=== PATIENT | male | born 1960 | race African-American/Black ===

== ENCOUNTER 2016-12-02 05:33 | Day surgery (SDC) | payer BC ==
[2016-11-25 09:18] LABS: HEMATOCRIT 40.3 % (37.9-51.0); HGB HCT DIFFERENCE -1.3; MEAN CORPUSCULAR HEMOGLOBIN 22.5 pg (27.0-33.4); MEAN CORPUSCULAR HGB CONC 32.3 g/dL (32.0-36.0); MEAN CORPUSCULAR VOLUME 70 fl (80-97); RED BLOOD COUNT 5.79 10^6/uL (4.35-5.55); RED CELL DISTRIBUTION WIDTH 15.1 % (11.5-14.0)
--- NOTE | 2016-11-25 20:33 | EKG REPORT ---
SEVERITY:- ABNORMAL ECG - SINUS RHYTHM PROBABLE LEFT ATRIAL ABNORMALITY IVCD, CONSIDER ATYPICAL LBBB : Confirmed by: Roger Martin MD 25-Nov-2016 20:31:56
[~2016-12-02 05:33] MED LIST: ACETAMINOPHEN 325 MG TABLET PO PRN; CEFAZOLIN 1 GM/D5W RTU 1 GM/50 ML RTUPB IV SCH; LACTATED RINGERS 1000 ML IV PRN; LIDOCAINE 0.5% INJ-PF (5 MG/ML) 50 ML SDV SUBCUT PRN
[2016-12-02] MEDS ORDERED: BUPIVACAINE INJ/PF LIPOSOME/PF 266 MG/20 ML SDV ONE (06:43)
[2016-12-02] MEDS ORDERED: BUPIVACAINE HCL 0.25 % INJ/PF (2.5 MG/1 ML) 30 ML VIAL ONE (06:43)
[2016-12-02 06:47] VITALS: BP 175/114
[2016-12-02] MEDS ORDERED: HYDROMORPHONE HCL INJ/PF 2 MG/ML AMPULE ONE (07:07)
[2016-12-02] MEDS ORDERED: MIDAZOLAM 2 MG/2 ML INJ ONE ×2 (07:08→07:16)
[2016-12-02] MEDS ORDERED: PROPOFOL INJ 200 MG/20 ML VIAL IV ONE (07:08)
[2016-12-02] MEDS ORDERED: ACETAMINOPHEN 0 ML IV ONE (07:08)
== END 2016-12-02 08:09 | disposition home or self-care (01) ==
LOC: OROUT 05:33
PROVIDERS: ATTEND Surgery
DX: Z01.818 Encounter for other preprocedural examination (principal); K40.90 Unilateral inguinal hernia, without obstruction or gangrene, not specified as recurrent; I10 Essential (primary) hypertension
CPT/HCPCS: 93005; 36415; 85027; 93010; J2250; J0690; C9290; J0131; J1170; J2704

== ENCOUNTER → 2017-01-20 | Day surgery (SDC) | payer BC ==
[2017-01-13 09:13] LABS: HEMATOCRIT 39.3 % (37.9-51.0); HEMOGLOBIN 12.5 g/dL (13.5-17.0); HGB HCT DIFFERENCE -1.8; MEAN CORPUSCULAR HEMOGLOBIN 22.4 pg (27.0-33.4); MEAN CORPUSCULAR HGB CONC 31.8 g/dL (32.0-36.0); MEAN CORPUSCULAR VOLUME 71 fl (80-97); RED BLOOD COUNT 5.57 10^6/uL (4.35-5.55); RED CELL DISTRIBUTION WIDTH 15.7 % (11.5-14.0); WHITE BLOOD COUNT 3.7 10^3/uL (4.0-10.5)
[~2017-01-20] MED LIST changes: +CEFAZOLIN 1 GM/D5W RTU 1 GM/50 ML RTUPB IV PRN; -CEFAZOLIN 1 GM/D5W RTU 1 GM/50 ML RTUPB IV SCH
[2017-01-20 10:17] VITALS: BP 168/93
--- NOTE | 2017-01-20 21:16 | EKG REPORT ---
SEVERITY:- ABNORMAL ECG - SINUS BRADYCARDIA LEFT ATRIAL ABNORMALITY LEFT BUNDLE BRANCH BLOCK : Confirmed by: Quinn Gonzáles 20-Jan-2017 21:15:18
== END ==
LOC: OROUT 09:25
PROVIDERS: ATTEND Surgery
DX: Z01.818 Encounter for other preprocedural examination (principal); K40.90 Unilateral inguinal hernia, without obstruction or gangrene, not specified as recurrent; I10 Essential (primary) hypertension
CPT/HCPCS: 36415; 85027; 93005; 93010; J0690

== ENCOUNTER → 2017-01-21 | Outpatient (CLI) | payer BC ==
[~2017-01-21] MED LIST changes: -ACETAMINOPHEN 325 MG TABLET PO PRN; -CEFAZOLIN 1 GM/D5W RTU 1 GM/50 ML RTUPB IV PRN; -LACTATED RINGERS 1000 ML IV PRN; -LIDOCAINE 0.5% INJ-PF (5 MG/ML) 50 ML SDV SUBCUT PRN; +REGADENOSON INJ 0.4 MG/5 ML DISP.SYRIN IV ONE
--- NOTE | 2017-01-23 15:58 | DRAGON STRESS TEST REPORT ---
Intravenous LexiScan Cardiolite stress test using single photon emmision computerized tomographic. Date of procedure: 01/21/2017 Ordering Provider: Dr. Joanna Dutta. Primary Care Physician: Dr. Tiffanie Sosa. Indication: . Abnormal EKG [see below], and preoperative cardiac risk assessment. Coronary risk factors: Age, and hypertension. Resting EKG: Sinus Rhythm. LVH with strain pattern, and T inversion in lead V6. Note the patient's prior EKG showed sinus rhythm , LVH with strain pattern but cannot rule out out lateral wall ischemia. Stress EKG: No changes of ischemia. The patient had no chest pain or discomfort, and there were no arrhythmias seen. Reason for termination: Protocol. Conclusions: Normal EKG and hemodynamic response to IV LexiScan. Nuclear data: At rest the patient was given 14.22 millicuries of technetium 99 sestamibi injected intravenously. As per protocol rest non gated SPECT images were obtained. Subsequently the patient was given intravenous LexiScan at a dose of 0.4 mg in 5 mL intravenously, followed by flush with normal saline. Subsequently the stress dose of 45.4 millicuries of technetium 99 sestamibi was injected intravenously. As per protocol stress gated images were obtained. Nuclear interpretation: Review of images showed that there is a perfusion defect in both the rest and stress images involving the basal inferior wall, with this area having decreased motion contraction and thickening by gated study. The rest of the segments of the myocardium had normal perfusion at rest, and normal perfusion post stress with IV LexiScan. The rest of the segments of the myocardium had normal thickening by gated study. This seems to be mild global hypokinesis. T. I D. ratio was normal at 1.19. Computer read rest, and stress left ventricular ejection fraction were 49 %, and 37 % respectively. Visually both the stress and rest ejection fractions were abnormal, and r were reduced at 45% to 50%. 1. There is no scintigraphic evidence of LexiScan induced myocardial ischemia. 2. There is scintigraphic evidence of myocardial infarction/scar involving the basal inferior wall. 3. There seems to be mild cardiomyopathy, with ejection fraction being 45% to 50%. . Recommendations: 1.Would recommend an echocardiogram for LV ejection fraction correlation, prior to further risk assessment for this proposed surgery. 2.Aggressive risk factor modification, and treating the underlying co- morbidities. MTDD
== END ==
LOC: RAD 06:58
PROVIDERS: ATTEND Specialist
DX: R94.31 Abnormal electrocardiogram [ECG] [EKG] (principal)
CPT/HCPCS: 93017; 78452; A9500; J2785; Q9969

== ENCOUNTER → 2017-02-10 | Outpatient (CLI) | payer BC ==
[2017-02-11 15:38] LABS: AMORPHOUS SEDIMENT,URINE TRACE /HPF; APPEARANCE,URINE TURBID; BILIRUBIN,URINE NEGATIVE (NEGATIVE); GLUCOSE, URINE NEGATIVE (NEGATIVE); KETONES,URINE NEGATIVE (NEGATIVE); LEUKOCYTE ESTERASE,URINE NEGATIVE (NEGATIVE); NITRITE,URINE NEGATIVE (NEGATIVE); PROTEIN,URINE NEGATIVE (NEGATIVE); URINE SPECIFIC GRAVITY 1.025; UROBILINOGEN,URINE NEGATIVE mg/dL (<2.0)
== END ==
LOC: OD 22:17
PROVIDERS: ATTEND Urology
DX: R97.20 Elevated prostate specific antigen [PSA] (principal); R31.9 Hematuria, unspecified
CPT/HCPCS: 36415; 81001; 84154

== ENCOUNTER 2017-02-24 05:39 | Observation (INO) | payer BC ==
[2017-02-17 12:18] LABS: HEMATOCRIT 41.5 % (37.9-51.0); HEMOGLOBIN 13.2 g/dL (13.5-17.0); HGB HCT DIFFERENCE -1.9; MEAN CORPUSCULAR HEMOGLOBIN 22.2 pg (27.0-33.4); MEAN CORPUSCULAR HGB CONC 31.9 g/dL (32.0-36.0); MEAN CORPUSCULAR VOLUME 70 fl (80-97); RED BLOOD COUNT 5.97 10^6/uL (4.35-5.55); RED CELL DISTRIBUTION WIDTH 15.1 % (11.5-14.0); WHITE BLOOD COUNT 3.8 10^3/uL (4.0-10.5)
--- NOTE | 2017-02-17 13:33 | EKG REPORT ---
SEVERITY:- ABNORMAL ECG - SINUS BRADYCARDIA LEFT BUNDLE BRANCH BLOCK : Confirmed by: Roger Martin MD 17-Feb-2017 13:33:08
[~2017-02-24 05:39] MED LIST changes: +ACETAMINOPHEN 325 MG TABLET PO PRN; +CEFAZOLIN 1 GM/D5W RTU 1 GM/50 ML RTUPB IV PRN; +LACTATED RINGERS 1000 ML IV PRN; +LIDOCAINE 0.5% INJ-PF (5 MG/ML) 50 ML SDV SUBCUT PRN; -REGADENOSON INJ 0.4 MG/5 ML DISP.SYRIN IV ONE
[2017-02-24] MEDS ORDERED: BUPIVACAINE HCL 0.25 % INJ/PF (2.5 MG/1 ML) 30 ML VIAL ONE (06:37)
[2017-02-24] MEDS ORDERED: BUPIVACAINE INJ/PF LIPOSOME/PF 266 MG/20 ML SDV ONE (06:38)
[2017-02-24] MEDS ORDERED: HYDROMORPHONE HCL INJ/PF 2 MG/ML AMPULE ONE (07:07)
[2017-02-24] MEDS ORDERED: PROPOFOL INJ 200 MG/20 ML VIAL IV ONE (07:08)
[2017-02-24] MEDS ORDERED: ACETAMINOPHEN 100 ML IV ONE (07:08)
[2017-02-24] MEDS ORDERED: FENTANYL CITRATE INJ/PF 100 MCG/2 ML AMPUL ONE (07:08)
[2017-02-24] MEDS ORDERED: MIDAZOLAM 2 MG/2 ML INJ ONE (07:08)
[2017-02-24] MEDS ORDERED: DIPHENHYDRAMINE HCL 50 MG/ML VIAL IV PRN (08:05)
[2017-02-24] MEDS ORDERED: MEPERIDINE HCL/PF INJ 25 MG/1 ML DISP.SYRIN IV PRN (08:05)
[2017-02-24] MEDS ORDERED: MORPHINE SULFATE 10 MG/ML INJ IV PRN (08:05)
[2017-02-24] MEDS ORDERED: OXYCODONE-ACETAMINOPHEN 5-325 MG TABLET PO PRN ×2 (08:05)
[2017-02-24] MEDS ORDERED: FENTANYL CITRATE INJ/PF 100 MCG/2 ML AMPUL IV PRN ×3 (08:05)
[2017-02-24] MEDS ORDERED: PROMETHAZINE HCL INJ 25 MG/1 ML VIAL IV PRN ×2 (08:05)
--- NOTE | 2017-02-24 09:32 | PDOC DISCHARGE SUMMARY ---
Discharge Summary (SDC) - Discharge Final Diagnosis: right inguinal hernia Date of Surgery: 02/24/17 Discharge Date: 02/24/17 Condition: Stable Treatment or Instructions: Inguinal Hernia No heavy lifting >20lbs for 8 weeks. No excessive bending, pulling, pushing. You have skin glue as a dressing. Leave skin glue intact until it falls away on its own. You may shower after 48 hours. Allow soapy water to go over area, do not scrub, pat dry. Return to clinic in ten days to two weeks for evaluation. Call clinic sooner with any questions/concerns. [facility] [phone] Prescriptions: Ketorolac Tromethamine [Toradol 10 mg Tablet] 10 mg PO Q4HP PRN #20 tablet PRN Reason: Discharge Diet: As Tolerated Discharge Activity: No Lifting Over 10 Pounds - over 20lbs for 8 weeks, No Lifting/Push/Pulling Report the Following to Your Physician Immediately: Vomiting, Increase in Pain, Fever over 101 Degrees, Unusual Bleeding, Redness, Drainage-Foul Smelling
[2017-02-24] MEDS: FENTANYL CITRATE INJ/PF 100 MCG/2 ML AMPUL ONE ×2 (09:35→12:14)
--- NOTE | 2017-02-24 09:37 | Operative Report ---
Operative Report DATE OF SURGERY: 02/24/17 PREOPERATIVE DIAGNOSIS: Right inguinal hernia, prolapse POSTOPERATIVE DIAGNOSIS: Same, indirect OPERATION: Right inguinal herniorrhaphy with Bard polypropylene mesh plug and overlay mesh repair SURGEON: KIKI ADKINS 1ST TANNER ROTARY DRUM CONTINUOUS PROCESS: OMER MARIA ANESTHESIA: GA TISSUE REMOVED OR ALTERED: Hernia sac and attenuated cremasteric muscle fibers COMPLICATIONS: None ESTIMATED BLOOD LOSS: 15 cc INTRAOPERATIVE FINDINGS: See below PROCEDURE: The patient was evaluated in the preop holding area with the right inguinal region was marked by Dr. Adkins. Patient was then taken to the operating room where he underwent general anesthesia via endotracheal tube insertion. Arms were abducted, scrotum and lower abdominal wall prepped and draped in a sterile fashion. Surgical plan and surgical timeout conducted. Relevant anatomic landmarks were identified. Skin and subcutaneous tissue was anesthetized with approximately 15 cc of quarter percent Marcaine. A standard right inguinal herniorrhaphy incision was made with a #10 blade. Subcutaneous tissue was divided as was Ekta's fascia with electrocautery. The external oblique aponeurosis was anesthetized with quarter percent Marcaine then opened with a #10 blade. Superior and inferior fascial flaps were raised. The findings are significant for a moderate sized right inguinal hernia. The contents of the inguinal canal were gently mobilized. A Melissa drain was placed around all soft tissue therein. We now began dissecting the hernia sac away from the cord structures. The hernia sac was extremely firmly adhered to the vas deferens and the penniform plexus. This was a rather tedious but successful dissection as we able to sweep all of the soft tissue contents away from the peritoneal sac as a unit. The hernia sac was mobilized all the way up to its point of origination which was lateral to the inferior epigastric vessels , thereby rendering this an indirect hernia. We opened the hernia sac check for any visceral contents and there were none. the hernia sac was rotated on its base and oversewed at its stump with a 0 Vicryl suture. The hernia sac was amputated and passed off to pathology. Of note there was a fibrinous flimsy capsule surrounding the hernia sac and cord structures. Debrided, being careful not to injure the cord structures or the ilioinguinal nerve which was preserved throughout the dissection. We interrogated the floor the inguinal canal and medially it was felt to be in good shape. With the peritoneal stump now retracted into the retroperitoneal space, the actual abdominal wall defect is small. We used a Bard plug mesh prosthesis. The outer component was trimmed slightly, and the plug mesh inserted into the floor the inguinal canal adjacent to the cord structures but lateral to the stump of the oversewn peritoneum. We affixed the plug component to conjoined tendon and Poupart's ligament with 4 interrupted 0 PDS sutures. We now utilized the flat mesh, trimmed it to an appropriate configuration and showed it to the Poupart ligament and conjoined tendon as well. The new internal ring was re-created so that it was not too tight around the cord structures. We now closed the external oblique aponeurosis with 2-0 Vicryl suture, Ekta's fascia with 2-0 Vicryl, and skin with 3-0 Vicryl, and Dermabond glue. Subcutaneous tissue was anesthetized with 20 cc of full-strength exparel. Patient tolerated procedure well, extubated and taken recovery in stable condition. NKECHI Estrada, assisted with skin retraction wound closure and topical anesthesia administration.
[2017-02-24] MEDS: MORPHINE SULFATE 10 MG/ML INJ ONE ×2 (10:38→10:40)
[2017-02-24] MEDS: VALSARTAN 80 MG TABLET PO ONE ×2 (10:58→16:29)
[2017-02-24] MEDS ORDERED: SUCCINYLCHOLINE CHLORIDE INJ 200 MG/10 ML VIAL ONE (11:33)
[2017-02-24] MEDS ORDERED: CLONIDINE HCL INJ/PF 1000 MCG/10 ML SDV ONE (13:05)
[2017-02-24] MEDS: CLONIDINE HCL 0.1 MG TABLET PO ONE ×2 (13:20→16:29)
[2017-02-24] MEDS ORDERED: HYDRALAZINE HCL INJ/PF 20 MG/1 ML SDV IV PRN ×2 (15:00→15:01)
[2017-02-24] MEDS ORDERED: HYDRALAZINE HCL INJ/PF 20 MG/1 ML SDV IV ONE (15:00)
[2017-02-24] MEDS ORDERED: HYDRALAZINE HCL INJ/PF 20 MG/1 ML SDV ONE (15:17)
--- NOTE | 2017-02-24 16:13 | HISTORY AND PHYSICAL E ---
History and Physical NAME: ROSALIO CORDERO : 1960 AGE: 56Y ADMITTED: 02/24/2017 ROOM: REFERRING PROVIDER: Dr. Travis Marroquin CHIEF COMPLAINT: Uncontrolled hypertension. HISTORY OF PRESENT ILLNESS: The patient is a 56-year-old -[place] male with a past medical history of significant hypertension. The [facility] today for inguinal hernia repair. According to history, it appears the patient has had 3 separate attempts to have this surgery done; however, it has been rescheduled each time due to the patient's hypertension. The patient's hypertension has been managed by his primary care provider, Dr. Tiffanie Sosa, and the patient was initially started on ARB as well as metoprolol; however, as per the patient's history, metoprolol caused bradycardia for which the patient was referred to Cardiology. The patient had been seen and evaluated by Dr. Dutta in an outpatient setting and medication recommendations were made. Upon followup with his primary, the patient was transitioned to clonidine, for which the patient apparently had been taking in the past week; however, the morning of 02/24/2017 for his surgery the patient had not taken any of the blood pressure medications. Postoperatively the patient's blood pressure was found to be 226/117 and the patient was clinically asymptomatic for this. I was called to consult by Anesthesia. The patient was resumed on his home medications; however, his blood pressure had only made a minimal improvement within the hour, and at the request of Surgery the patient will be admitted for observation given his hypertensive urgency. Upon examination the patient denies any nausea, vomiting, diarrhea. No shortness of breath, dizziness, chest pain. No fevers or chills. The patient is actually quite eager for discharge; however, is willing to stay to get his blood pressure better controlled. PAST MEDICAL HISTORY: Is remarkable for hypertension. PAST SURGICAL HISTORY: Is remarkable for: 1. 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 2. Postoperative of hernia repair. ALLERGIES: No known drug allergies. MEDICATIONS: Home medications include: 1. Clonidine 0.2 mg p.o. b.i.d. 2. Diovan 160 mg p.o. b.i.d. SOCIAL HISTORY: The patient currently resides at home. 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 The patient's mother is his surrogate decision maker, Brenda Cordero, and may be reached at [phone]. The patient admits to a history of tobacco use but denies any alcohol or illicit drug use. FAMILY MEDICAL HISTORY: Positive for hypertension in multiple family members. Denies any history of heart failure or stroke. REVIEW OF SYSTEMS: CONSTITUTIONAL: The patient denies any fevers, chills, dizziness, weakness. No loss of appetite. INTEGUMENTARY: The patient denies any diaphoresis, rash, bruising or itching. HEENT: Denies any vision change, hearing loss, nasal drainage, sore throat, headaches. CARDIOVASCULAR: The patient denies any chest pain, edema, heart palpitations. RESPIRATORY: Denies any cough, sputum production or hemoptysis. GASTROINTESTINAL: Denies any nausea, vomiting, bloody hematemesis, constipation, melena, hematochezia. No epigastric pain. GENITOURINARY: Denies any hematuria, pyuria or dysuria. MUSCULOSKELETAL: Denies any acute or chronic joint pain. NEUROLOGIC: Denies any seizures, tremors, loss of consciousness. HEMATOLOGICAL: Denies any miesha bleeding. No easy bruising. ENDOCRINE: Denies any recent weight changes. PSYCHIATRIC: Appropriate affect. Pleasant mood. Rest of review of the organ systems is negative. PHYSICAL EXAMINATION: GENERAL: On examination, the patient is a well-developed, well-nourished 56-year-old -[place] male who is awake, alert, and oriented to person, place, time, and situation. He is verbal, conversational, ambulatory. He does not appear to be in any acute distress. VITAL SIGNS: Temperature is 98.4, pulse 82, respirations 14, blood pressure is 200/104, and oxygen saturation is 100% on room air. SKIN: Warm and dry. There is no rash and he is not diaphoretic. HEENT: Pupils equal, round and reactive to light and accommodation. Conjunctiva is pink. Sclerae is nonicteric. No mouth lesions. Tongue is midline. NECK: Supple. No JVP. No palpable lymphadenopathy or thyromegaly. CARDIOVASCULAR: Heart is regular, is no murmur or rub. CHEST: Clear, symmetrical, unlabored. ABDOMEN: Soft, nontender, nondistended. It is postoperative. Bowel sounds are present. No palpable organomegaly. BACK: No CVA tenderness or sacral edema. EXTREMITIES: No clubbing, cyanosis, edema or peripheral signs of embolization, +2 pedal pulses noted bilaterally. PSYCHIATRIC: Appropriate affect. Pleasant mood. NEUROLOGICAL: Cranial nerves 2-12 are intact. DIAGNOSTICS: Lab values are as follows. Hematology obtained on 02/17/2017: WBCs are 3.8, hemoglobin is 13.2, hematocrit 41.5, platelet count is 222,000. IMPRESSION AND PLAN: 1. Hypertensive urgency. The patient has had a long history of hypertension. These numbers are not too unusual for him. The patient has been compliant, according to him, with clonidine and stopped taking his medication prior to the procedure. Do have a high suspicion for rebound given the height of the numbers and the fact that the patient is familiar with having blood pressures this high. Will resume home medications but give an additional dose of hydralazine and add hydralazine p.r.n. Will admit the patient for further observation. 2. Postoperative hernia repair. The patient can be discharged as per Surgery. 3. DVT prophylaxis. Will add KIARA hose and subcutaneous heparin. DISPOSITION: THE PATIENT IS A FULL CODE. Pending the patient's symptomatology and diagnostic findings, most likely the patient can be discharged in the a.m. Will observe the patient in inpatient IMCU as the patient's expected length of stay will not surpass 2 midnights. Time spent on this admission, including assessment/plan, physical examination, patient education, specialty collaboration, resource alignment, is 50 minutes. DICTATING PHYSICIAN: AMBER SNEED NP [id number] PHY#: [id number] ID: [id number] JOB#: [id number] ACCT: [id number] cc:TRAVIS MARROQUIN M.D. >
[2017-02-24] MEDS ORDERED: PROMETHAZINE HCL INJ 25 MG/1 ML VIAL IM ONE (16:32)
[2017-02-24] MEDS ORDERED: PROMETHAZINE HCL INJ 25 MG/1 ML VIAL IV ONE (16:32)
[2017-02-24] MEDS ORDERED: ONDANSETRON 4 MG TAB.RAPDIS PO PRN (16:50)
[2017-02-24] MEDS: VALSARTAN 160 MG TABLET PO SCH (17:00)
[2017-02-24] MEDS ORDERED: AMLODIPINE BESYLATE 5 MG TABLET PO ONE (17:00)
[2017-02-24] MEDS ORDERED: PROMETHAZINE HCL INJ 50 MG/1 ML VIAL IM ONE (17:00)
[2017-02-24] MEDS ORDERED: NITROGLYCERIN 2% OINTMENT 1 GM PACKET TP ONE (17:00)
[2017-02-24 19:05] LABS: ANION GAP 16 (5-19); BLOOD UREA NITROGEN 11 mg/dL (7-20); CALCIUM 10.1 mg/dL (8.4-10.2); CARBON DIOXIDE 27 mmol/L (22-30); CHLORIDE 97 mmol/L (98-107); GLUCOSE 163 mg/dL (75-110); POTASSIUM 3.5 mmol/L (3.6-5.0); SODIUM 139.7 mmol/L (137-145)
[2017-02-24 21:34] LABS: URINE BARBITURATES SCREEN NEGATIVE; URINE METHADONE SCREEN NEGATIVE; URINE PHENCYCLIDINE SCREEN NEGATIVE
[2017-02-24 21:56] LABS: URINE OPIATES LOW UNCONFIRMED POSITIVE
[2017-02-24] MEDS ORDERED: PROMETHAZINE HCL 25 MG SUPP.RECT PR PRN (22:18)
[2017-02-24] MEDS: CLONIDINE HCL 0.2 MG TABLET PO SCH (22:51)
[2017-02-24] MEDS: AMLODIPINE BESYLATE 5 MG TABLET PO SCH (22:52)
[2017-02-24] MEDS: HEPARIN SOD (PORCINE) 5,000 UNIT/ML 1 ML SYRINGE SUBCUT SCH (22:52)
[2017-02-24 22:53] LABS: ANION GAP 19 (5-19); BLOOD UREA NITROGEN 13 mg/dL (7-20); CARBON DIOXIDE 24 mmol/L (22-30); CHLORIDE 98 mmol/L (98-107); CREATININE RESULT 0.92 mg/dL (0.52-1.25); GLUCOSE 166 mg/dL (75-110); MAGNESIUM 1.7 mg/dL (1.6-2.3); POTASSIUM 3.5 mmol/L (3.6-5.0); SODIUM 140.6 mmol/L (137-145)
[2017-02-25] MEDS: HEPARIN SOD (PORCINE) 5,000 UNIT/ML 1 ML SYRINGE SUBCUT SCH ×2 (05:25→13:37)
--- NOTE | 2017-02-25 09:57 | EKG REPORT ---
SEVERITY:- ABNORMAL ECG - SINUS TACHYCARDIA LEFT ATRIAL ABNORMALITY LVH WITH IVCD, LAD AND SECONDARY REPOL ABNRM : Confirmed by: Quinn Gonzáles 25-Feb-2017 09:55:25
[2017-02-25] MEDS: CLONIDINE HCL 0.2 MG TABLET PO SCH (10:22)
[2017-02-25] MEDS: VALSARTAN 160 MG TABLET PO SCH (10:22)
[2017-02-25] MEDS: AMLODIPINE BESYLATE 5 MG TABLET PO SCH (10:22)
[2017-02-25] MEDS ORDERED: HYDRALAZINE HCL INJ/PF 20 MG/1 ML SDV IV PRN (11:09)
[2017-02-25] MEDS ORDERED: CLONIDINE HCL 0.1 MG TABLET PO ONE (11:10)
[2017-02-25 13:33] VITALS: BP 150/100
[2017-02-25] MEDS ORDERED: CLONIDINE HCL 0.2 MG TABLET PO SCH (14:00)
--- NOTE | 2017-02-25 18:23 | DISCHARGE SUMMARY E ---
Discharge Summary NAME: ROSALIO CORDERO : 1960 AGE: 56Y ADMITTED: 02/24/2017 DISCHARGED: 02/25/2017 CODE STATUS: FULL CODE. PRIMARY CARE PROVIDER: Tiffanie Sosa M.D. SURGICALIST: Travis Marroquin M.D. OUTPATIENT EQUIPMENT VALIDATION SPECIALIST: Joanna Dutta M.D. DISCHARGE DIAGNOSES: Includes: 1. Hypertensive emergency. 2. Medical noncompliance. DISCHARGE MEDICATIONS: Include: 1. Norvasc 5 mg p.o. q.12 hours, #90 tablets 0 refills. 2. Clonidine 0.3 mg p.o. q.8 hours, #60 tablets 0 refills. 3. Diovan 160 mg p.o. b.i.d. DIET: Heart healthy. ACTIVITY: As per surgicalist's instructions of no heavy lifting of greater than 20 pounds for 8 weeks. No bending, pulling, pushing. HISTORY OF PRESENT ILLNESS: The patient is a 56-year-old male with a past medical history of severe hypertension. The patient presented to the surgery center and underwent right inguinal hernia repair. While in the PACU, the patient's blood pressure was uncontrollable. According to history, the patient has had 3 separate attempts to have the surgery done, however, had been rescheduled each time due to the patient's hypertension. The patient's primary care provider, Dr. Tiffanie Sosa, initially started the patient on ARB as well as metoprolol; however, according to the patient's history, metoprolol had caused bradycardia, and therefore patient was referred to Cardiology. The patient was seen and evaluated in an outpatient setting. Stress test was completed as well as. Medication recommendations were made. Upon followup with his primary care provider, the patient was transitioned to clonidine for which he had apparently been taking the week prior to his surgery; however, the morning of 02/24/2017 before surgery, the patient did not take his blood pressure medication. Postoperatively, the patient's blood pressure was found to be 226/117; however, the patient was otherwise clinically asymptomatic. The patient was referred to the hospitalist for observation and management for hypertensive emergency by Anesthesia as well as the surgicalist. The patient was resumed on his home medications; however, his blood pressure only made minimal improvement within an hour. The patient denied any nausea, vomiting, diarrhea. No shortness of breath due to his chest pain. No fevers, chills. The patient was actually quite eager for discharge; however, he was willing to stay to get his blood pressure better controlled. I discussed the case with the patient's surgicalist, and the patient has been cleared for discharge. HOSPITAL COURSE: The patient was observed in continuous telemetry unit. The patient was maximized on his home clonidine therapy and was resumed on his ARB. The patient did have improvement with this, and additional Norvasc was added. The patient's blood pressures came down nicely throughout the evening. The patient did have a postoperative episode of nausea with vomiting, but this responded to anti-emetic therapy. At this time, the patient states that he feels that he at his baseline. He is sore from his surgery, and he is quite eager for discharge. DIAGNOSTICS: Lab values are as follows: Hematology obtained 02/17/2017: WBC is 3.8; hemoglobin is 13.2; hematocrit is 41.5; platelet count is 222,000. Chemistry obtained on 02/24/2017: Sodium is 140; potassium is 4.5; chloride is 98; carbon dioxide is 24; BUN 13; creatinine is 0.92; glucose 166; calcium is 10; magnesium is 1.7. Toxicology obtained on 02/24/2017 is positive for opiates and benzodiazepine as well as marijuana. EKG obtained on 02/24/2017 reveals sinus tachycardia. PHYSICAL EXAMINATION: GENERAL: On examination, the patient is a well-developed, well-nourished, 56-year-old male who is awake, alert, and oriented to person, place, time, and situation. He is verbal conversational, ambulatory, and does not appear to be in any acute distress. VITAL SIGNS: Are as follows: Temperature is 97.6. Pulse 88. Respirations 19. Blood pressure is 150/94. Oxygen saturation 98% on room air. SKIN: Warm and dry. No rash. Not diaphoretic. HEENT: Pupils are equal, round, and reactive to light and accommodation. Conjunctivae pink. There is no JVD. CARDIOVASCULAR: Heart is regular. There is no murmur or rub. CHEST: Clear to auscultation. ABDOMEN: Soft, nontender, nondistended. Postoperative. BACK: No CVA tenderness or sacral edema. EXTREMITIES: No clubbing, cyanosis, edema. PSYCHIATRIC: Appropriate affect, pleasant mood. DISCHARGE PLANNIN. The patient is advised to follow up with his primary care provider within 1 week for hospital followup and for blood pressure check. 2. The patient is to follow up within 1 to 2 weeks with the surgicalist for hospital followup. Time spent on this discharge including assessment, plan, physical examination, patient education, and collaboration is 25 minutes. DICTATING PHYSICIAN: AMBER SNEED NP [id number] Y#: [id number] ID: [id number] JOB#: [id number] ACCT: [id number] cc:GELY JUÁREZ M.D. >
== END 2017-02-25 16:20 | disposition home or self-care (01) ==
LOC: OROUT 05:39 → 3N 14:57 → UNDOADMOB 17:30
PROVIDERS: ADMIT Surgery; ATTEND Surgery
PROC: 0YU50JZ Supplement Right Inguinal Region with Synthetic Substitute, Open Approach (ICD-10-PCS; principal; 2017-02-24 07:30)
DX: I16.1 Hypertensive emergency (principal); Z91.14 Patient's other noncompliance with medication regimen; K40.90 Unilateral inguinal hernia, without obstruction or gangrene, not specified as recurrent; K91.0 Vomiting following gastrointestinal surgery; R78.89 Finding of other specified substances, not normally found in blood; R00.0 Tachycardia, unspecified; Z82.49 Family history of ischemic heart disease and other diseases of the circulatory system; Z87.891 Personal history of nicotine dependence
CPT/HCPCS: 93005 ×2; 36415 ×2; 82962; 83735; 85027; 80048; 80307; 88302 ×2; 93010 ×2; 49505; G0378 ×2; G0379; C1781; J2250; J1644; J0690; S0119; J3010; J0360 ×2; J2270; J2550 ×2; J0330; J3490 ×3; J2704; J0131; C9290; 830; J0735; J1170

== ENCOUNTER 2017-04-06 10:21 | Emergency (ER) | payer BC ==
--- NOTE | 2017-04-06 10:44 | ER Document Report ---
ED General - General Chief Complaint: Urinary Retention Stated Complaint: ABDOMINAL PAIN Time Seen by Provider: 04/06/17 10:39 Mode of Arrival: Ambulatory Information source: Patient, [facility] Records TRAVEL OUTSIDE OF THE [place] IN LAST 30 DAYS: No - HPI Patient complains to provider of: Abdominal fullness Onset: Other Onset/Duration: Gradual Quality of pain: No pain Exacerbated by: Denies Relieved by: Denies Notes: Patient is a 56-year-old male who underwent a right inguinal hernia repair several months ago. Patient has been doing quite well postoperatively. Patient was seen at his surgeon's office today and was noted to have a rather large palpable abdominal firmness. Patient denies any specific complaints related to this. Patient states he is voiding without difficulty. He is eating and drinking without difficulty. He is having normal bowel movements. He has no fevers or chills. Patient was sent to the emergency department for evaluation of this palpable fullness. Patient is without any other complaints presently. - Related Data Allergies/Adverse Reactions: No Known Allergies Allergy (Verified 04/06/17 10:29) Past Medical History - Social History Smoking Status: Never Smoker Chew tobacco use (# tins/day): No Frequency of alcohol use: None Drug Abuse: None Family History: Reviewed & Not Pertinent - Past Medical History Cardiac Medical History: Reports: Hx Hypertension Denies: Hx Coronary Artery Disease, Hx Heart Attack Pulmonary Medical History: Denies: Hx Asthma, Hx Bronchitis, Hx COPD, Hx Pneumonia Neurological Medical History: Denies: Hx Cerebrovascular Accident, Hx Seizures Renal/ Medical History: Denies: Hx Peritoneal Dialysis Musculoskeltal Medical History: Denies Hx Arthritis Past Surgical History: Reports: Hx Abdominal Surgery - hernia - Immunizations Hx Diphtheria, Pertussis, Tetanus Vaccination: Yes Review of Systems - Review of Systems Gastrointestinal: Abdomen distended -: Yes All other systems reviewed and negative Physical Exam - Vital signs Vitals: Temp Pulse Resp Pulse Ox 97.5 F 81 18 100 04/06/17 10:30 04/06/17 10:30 04/06/17 10:30 04/06/17 10:30 Interpretation: Normal - General General appearance: Appears well, Alert - HEENT Head: Normocephalic, Atraumatic Eyes: Normal Pupils: PERRL - Respiratory Respiratory status: No respiratory distress Chest status: Nontender Breath sounds: Normal Chest palpation: Normal - Cardiovascular Rhythm: Regular Heart sounds: Normal auscultation Murmur: No - Abdominal Inspection: Normal Distension: Other - There is a large palpable centrally located firmness, it is nontender, it is not tympanic. Bowel sounds: Normal Tenderness: Nontender Organomegaly: No organomegaly - Back Back: Normal, Nontender - Extremities General upper extremity: Normal inspection, Nontender, Normal color, Normal ROM , Normal temperature General lower extremity: Normal inspection, Nontender, Normal color, Normal ROM , Normal temperature, Normal weight bearing. No: Hakan's sign - Neurological Neuro grossly intact: Yes Cognition: Normal Orientation: AAOx4 Vandana Coma Scale Eye Opening: Spontaneous [place] Coma Scale Verbal: Oriented [place] Coma Scale Motor: Obeys Commands Vandana Coma Scale Total: 15 Speech: Normal Motor strength normal: LUE, RUE, LLE, RLE Sensory: Normal - Psychological Associated symptoms: Normal affect, Normal mood - Skin Skin Temperature: Warm Skin Moisture: Dry Skin Color: Normal Course - Re-evaluation Re-evalutation: 04/06/17 11:32 Patient denies any difficulty with urination, CT scan of the abdomen is consistent with severely distended urinary bladder consistent with bladder outlet obstruction. Will Place Nuñez catheter. 04/06/17 12:37 Patient has drained over 1500 cc from Nuñez catheter. We will continue to clamp and release every 15 minutes. Once bladder is fully drained, will reassess blood pressure as his hypertension may be due to his urinary retention. Will likely discharge home with Nuñez and leg bag for follow-up with primary care and or his surgeon. 04/06/17 15:26 After several hours of Nuñez catheter placement, the patient did have some mild hematuria. The Nuñez was irrigated with some clots return and is flowing well. Leg bag is attached. Patient understands need for urology follow-up. Patient has not yet taken his blood pressure medication today. - Vital Signs Vital signs: Temp Pulse Resp BP Pulse Ox 97.5 F 81 18 213/101 H 100 04/06/17 10:30 04/06/17 10:30 04/06/17 10:30 04/06/17 12:12 04/06/17 10:30 - Laboratory Laboratory results interpreted by me: 04/06/17 13:50 Urine Protein 30 H Urine Blood LARGE H Discharge - Discharge Instructions: Urinary Retention ([facility]), Nuñez Catheter Care ([facility]) Additional Instructions: It is very important to follow-up with urology as soon as possible for management of your Nuñez catheter. Return to the emergency department if worse or for any other problems. Be sure to take your blood pressure medication as prescribed. Referrals: REBECCA MARTINEZ MD [Primary Care Provider] - Follow up as needed KIKI ADKINS MD [ACTIVE STAFF] - Follow up as needed SAMANTHA LUJAN MD [ACTIVE STAFF] - Follow up as needed
--- NOTE | 2017-04-06 11:17 | RADIOLOGY REPORT (SQ) ---
EXAM DESCRIPTION: CT ABD/PELVIS NO ORAL OR IV COMPLETED DATE/TIME: 04/06/2017 11:06 am REASON FOR STUDY: abd pain COMPARISON: None. TECHNIQUE: CT scan of the abdomen and pelvis performed without intravenous or oral contrast. Images reviewed with lung, soft tissue, and bone windows. Reconstructed coronal and sagittal MPR images revi ewed. All images stored on PACS. All CT scanners at this facility use dose modulation, iterative reconstruction, and/or weight based d osing when appropriate to reduce radiation dose to as low as reasonably achievable (ALARA). [facility]: Dose Right [facility]: CareDose [facility]: Dose Right [facility]: Teradose 4D [facility]: Smart [employer] RADIATION DOSE: Up-to-date CT equipment and radiation dose reduction techniques were employed. CTDIv ol: 10.7 mGy. DLP: 599 mGy-cm.mGy. LIMITATIONS: None. FINDINGS: LOWER CHEST: No significant findings. No nodules or infiltrates. NON-CONTRASTED LIVER, SPLEEN, ADRENALS: Evaluation limited by lack of IV contrast. No identified sign ificant masses. PANCREAS: No masses. No peripancreatic inflammatory changes. GALLBLADDER: No identified stones by CT criteria. No inflammatory changes to suggest cholecystitis. RIGHT KIDNEY AND URETER: No suspicious masses. Assessment limited by lack of IV contrast. No signif icant calcifications. Moderate hydronephrosis and hydroureter. LEFT KIDNEY AND URETER: No suspicious masses. Assessment limited by lack of IV contrast. No signifi cant calcifications. Moderate hydronephrosis and hydroureter. AORTA AND RETROPERITONEUM: No aneurysm. No retroperitoneal masses or adenopathy. BOWEL AND PERITONEAL CAVITY: No obvious masses or inflammatory changes. No free fluid. APPENDIX: Normal. PELVIS, BLADDER, AND ABDOMINAL WALL:No abnormal masses. No free fluid. Markedly distended urinary bl adder. BONES: Degenerative changes in the right hip. No acute findings. OTHER: No other significant finding. IMPRESSION: 1. MARKEDLY DISTENDED URINARY BLADDER WITH BILATERAL HYDRONEPHROSIS AND HYDROURETER. FINDINGS CONSIS TENT WITH BLADDER OUTLET OBSTRUCTION. 2. NO OTHER SIGNIFICANT OR ACUTE PROCESS IN THE ABDOMEN OR PELVIS. DEGENERATIVE CHANGES IN THE RIGHT HIP. TECHNICAL DOCUMENTATION: JOB ID: [id number] Quality ID # [id number]: Final reports with documentation of one or more dose reduction techniques (e.g., Au tomated exposure control, adjustment of the mA and/or kV according to patient size, use of iterative reconstruction technique) 2010 [employer]- All Rights Reserved
[2017-04-06 14:20] LABS: APPEARANCE,URINE CLEAR; BILIRUBIN,URINE NEGATIVE (NEGATIVE); GLUCOSE, URINE NEGATIVE (NEGATIVE); KETONES,URINE NEGATIVE (NEGATIVE); LEUKOCYTE ESTERASE,URINE NEGATIVE (NEGATIVE); NITRITE,URINE NEGATIVE (NEGATIVE); PROTEIN,URINE 30 mg/dL (NEGATIVE); URIC ACID CRYSTALS,URINE TOO NUMEROUS TO CNT /HPF; URINE SPECIFIC GRAVITY 1.003; UROBILINOGEN,URINE NEGATIVE mg/dL (<2.0)
[2017-04-06 16:33] VITALS: BP 205/97
== END 2017-04-06 16:30 | disposition home or self-care (01) ==
LOC: ER 10:21
DX: R33.9 Retention of urine, unspecified (principal); I10 Essential (primary) hypertension; Z98.890 Other specified postprocedural states
CPT/HCPCS: 51702; 74176; 81001; 99284

== ENCOUNTER → 2017-04-13 | Outpatient (CLI) | payer BC ==
[2017-04-13 10:08] LABS: ANION GAP 9 (5-19); BLOOD UREA NITROGEN 25 mg/dL (7-20); CALCIUM 8.9 mg/dL (8.4-10.2); CARBON DIOXIDE 32 mmol/L (22-30); CHLORIDE 102 mmol/L (98-107); CREATININE RESULT 1.78 mg/dL (0.52-1.25); GLUCOSE 74 mg/dL (75-110); POTASSIUM 3.7 mmol/L (3.6-5.0); SODIUM 142.8 mmol/L (137-145)
== END ==
LOC: OD 09:09
PROVIDERS: ATTEND Urology
DX: R97.20 Elevated prostate specific antigen [PSA] (principal)
CPT/HCPCS: 36415; 80048

== ENCOUNTER → 2017-09-24 | Outpatient (CLI) | payer BC ==
--- NOTE | 2017-09-24 11:28 | RADIOLOGY REPORT (SQ) ---
EXAM DESCRIPTION: CT CHEST WITH; CT ABD/PELVIS WITH IV ORAL COMPLETED DATE/TIME: 09/24/2017 9:22 am REASON FOR STUDY: COLON CA (C18.9) C18.9 MALIGNANT NEOPLASM OF COLON, UNSPECIFIED COMPARISON: CT abdomen pelvis 04/06/2017 CONTRAST TYPE AND DOSE: contrast/concentration: Isovue 370.00 mg/ml; Total Contrast Delivered: 98.0 ml; Total Saline Delivered: 53.0 ml RENAL FUNCTION: Creatinine 1.1 TECHNIQUE: CT scan of the chest performed using helical scanning technique with dynamic intravenous contrast injection. Images reviewed with lung, soft tissue and bone windows. Reconstructed coronal a nd sagittal MPR images reviewed. All images stored on PACS. CT scan of the abdomen and pelvis performed with intravenous and with oral contrastusing helical scan jamir technique with dynamic intravenous contrast injection. Images reviewed with lung, soft tissue a nd bone windows. Reconstructed coronal and sagittal MPR images reviewed. Delayed images for evaluat ion of the urinary system also acquired and evaluated. All images stored on PACS. All CT scanners at this facility use dose modulation, iterative reconstruction, and/or weight based d osing when appropriate to reduce radiation dose to as low as reasonably achievable (ALARA). [facility]: Dose Right [facility]: CareDose [facility]: Dose Right [facility]: Teradose 4D [facility]: [employer] RADIATION DOSE: CT Rad equipment meets quality standard of care and radiation dose reduction techniq ues were employed. CTDIvol: 6.8 - 7.6 mGy. DLP: 1131 mGy-cm. . LIMITATIONS: None. FINDINGS: CHEST: LUNGS AND PLEURA: No opacities, nodules, masses. No pneumothorax. No effusions. HILAR AND MEDIASTINAL STRUCTURES: No identified masses or abnormal nodes. HEART AND VASCULAR STRUCTURES: No aneurysm or dissection. No central pulmonary emboli. No pericardi al effusion. Aberrant right subclavian artery, an anatomic variant HARDWARE: None. THYROID AND OTHER SOFT TISSUES: No masses. No adenopathy. BONES: No significant finding. OTHER: No other significant finding. ABDOMEN AND PELVIS: LIVER: Normal size. No masses. No dilated ducts. SPLEEN: Normal size. No focal lesions. PANCREAS: No masses. No significant calcifications. No adjacent inflammation or peripancreatic fluid collections. Pancreatic duct not dilated. GALLBLADDER: No identified stones by CT criteria. No inflammatory changes to suggest cholecystitis. ADRENAL GLANDS: No significant masses or asymmetry. RIGHT KIDNEY AND URETER: No solid masses. No significant calcification. No hydronephrosis or hydroure ter. LEFT KIDNEY AND URETER: No solid masses. No significant calcification. No hydronephrosis or hydrouret er. AORTA AND VESSELS: No aneurysm. No dissection. Renal arteries, SMA, celiac without stenosis. RETROPERITONEUM: No retroperitoneal adenopathy, hemorrhage or masses. BOWEL AND PERITONEAL CAVITY: Focal colon wall thickening in the distal transverse colon near the sple kobe flexure axial image 33 and coronal image 25, may represent malignancy given history of colon canc er. No free fluid or peritoneal masses. Descending and sigmoid colon diverticuli without CT signs o f acute diverticulitis. APPENDIX: Normal. ABDOMINAL WALL: No masses. No hernias. BONES: No lytic or blastic lesions. Advanced osteoarthritis right hip. PELVIS: Prostate 7.5 x 7.3 cm in size, with diffuse bladder wall thickening from relative bladder ou tlet obstruction. Patient had urinary retention on prior CT 04/06/2017. No other significant finding. IMPRESSION: No CT evidence of metastatic disease to the chest abdomen or pelvis Abnormal colon wall thickening in the distal transverse colon near the splenic flexure, likely repres ents a small primary colon Neoplasm TECHNICAL DOCUMENTATION: JOB ID: [id number] Quality ID # [id number]: Final reports with documentation of one or more dose reduction techniques (e.g., Au tomated exposure control, adjustment of the mA and/or kV according to patient size, use of iterative reconstruction technique) 2010 [employer]- All Rights Reserved
== END ==
LOC: RAD 07:51
PROVIDERS: ATTEND Internal Medicine Medical Oncology
DX: C18.9 Malignant neoplasm of colon, unspecified (principal); M16.11 Unilateral primary osteoarthritis, right hip
CPT/HCPCS: 71260; 74177; 82565

== ENCOUNTER 2018-07-04 23:28 | Emergency (ER) | payer BC ==
[2018-07-05] MEDS ORDERED: HYDROMORPHONE HCL INJ/PF 2 MG/ML AMPULE IM ONE (00:11)
--- NOTE | 2018-07-05 00:16 | ER Document Report ---
ED General - General Chief Complaint: Low Back Pain Stated Complaint: BACK PAIN Time Seen by Provider: 07/05/18 00:05 Notes: Patient is a pleasant 58-year-old male who complains of worsening right-sided lower back pain over the course of a week. 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 He says he is on his feet all day at work. He is she noticed some slight pain in his right lower back going into his right hip. Of course week as continue to worsen to the point now where it hurts to walk or move. He says occasionally pain will shoot down the back of his right leg. He says occasionally he will get some intermittent numbness into his right foot. He denies any new injuries that he is aware of. He denies any previous history of back pain. He denies abdominal pain. No loss of bowel control. No urinary retention. No recent fevers or infections. No abdominal pain associate with this. He does have history of hypertension he says he did take his blood pressure medications this morning. He has not taken Tylenol or Motrin or any [id number] pain medicine to help with the pain. TRAVEL OUTSIDE OF THE [place] IN LAST 30 DAYS: No - Related Data Allergies/Adverse Reactions: No Known Allergies Allergy (Verified 04/06/17 10:29) Past Medical History - Social History Smoking Status: Never Smoker Frequency of alcohol use: None Drug Abuse: None Family History: Reviewed & Not Pertinent - Past Medical History Cardiac Medical History: Reports: Hx Hypertension Denies: Hx Coronary Artery Disease, Hx Heart Attack Pulmonary Medical History: Denies: Hx Asthma, Hx Bronchitis, Hx COPD, Hx Pneumonia Neurological Medical History: Denies: Hx Cerebrovascular Accident, Hx Seizures Renal/ Medical History: Denies: Hx Peritoneal Dialysis Musculoskeletal Medical History: Denies Hx Arthritis Past Surgical History: Reports: Hx Abdominal Surgery - hernia - Immunizations Hx Diphtheria, Pertussis, Tetanus Vaccination: Yes Review of Systems - Review of Systems Notes: My Normal Review Basic REVIEW OF SYSTEMS: CONSTITUTIONAL : Denies fever, chills, or sweats. Denies recent illness. RESPIRATORY: Denies cough, cold, or chest congestion. Denies shortness of breath, difficulty breathing, or wheezing. GASTROINTESTINAL: Denies abdominal pain. Denies nausea, vomiting, or diarrhea. GENITOURINARY: No urinary retention. MUSCULOSKELETAL: Low back pain SKIN: Denies rash or skin lesions. NEUROLOGICAL: Intermittent numbness in the right foot. No leg weakness. ALL OTHER SYSTEMS REVIEWED AND NEGATIVE. Physical Exam - Vital signs Vitals: Temp Pulse Resp BP Pulse Ox 98.5 F 71 16 199/100 H 100 07/04/18 23:44 07/04/18 23:44 07/04/18 23:44 07/04/18 23:44 07/04/18 23:44 - Notes Notes: General Appearance: Well nourished, alert, cooperative, no acute distress, alert obvious discomfort. Vitals: reviewed, See vital signs table. Eyes: PERRL, EOMI, Conjuctiva clear Mouth: No decreasd moisture Abdomen: Normal BS, soft, No rigidity, No abdominal tenderness, Back: Patient has some reproducible pain palpation over the right lumbar paraspinal musculature. No midline tenderness. No pain to left lumbar paraspinal musculature. Some pain into the right gluteal region. Pain worse with raising right leg. Extremities: strength 5/5 in all extremities, good pulses in all extremities, no edema. Good strenght with dorsi and plantar dorsiflexion against resistance of both feet. Good distal sensation. Skin: warm, dry, appropriate color, no rash Neuro: speech clear, oriented x 3, normal affect, responds appropriately to questions. Course - Re-evaluation Re-evalutation: 07/05/18 02:36 On reevaluation patient's back pain is much better and improved. On clinical examination appears that he has likely low back pain with sciatica. He does not have any signs or symptoms concerning with central cord impingement and that he does not have leg weakness or numbness, no general told numbness, loss of bowel control, no urinary retention. Suspect this pain is probably exacerbated by the fact that he stands at work all day. I did write a work note asking to allow him to sit for at least half the work day over the course of the next week. Also given 2 days off work to get rest. I encouraged him to take ibuprofen which I have prescribed to help with the pain. Encourage him return to ER if he has leg weakness, leg numbness, loss of bowel control, urinary retention, or if he feels that he is worsening in any way. Patient agrees with plan will be discharged home. Dictation of this chart was performed using voice recognition software; therefore, there may be some unintended grammatical errors. - Vital Signs Vital signs: Temp Pulse Resp BP Pulse Ox 98.5 F 71 16 199/100 H 100 07/04/18 23:44 07/04/18 23:44 07/04/18 23:44 07/04/18 23:44 07/04/18 23:44 Discharge - Discharge Clinical Impression: Back pain Qualifiers: Back pain location: low back pain Chronicity: acute Back pain laterality: right Sciatica presence: with sciatica Sciatica laterality: sciatica of right side Qualified Code(s): M54.41 - Lumbago with sciatica, right side Condition: Good Disposition: HOME, SELF-CARE Additional Instructions: Please avoid heavy lifting. I have written a note to give you the option to sit during work to help reduce some strain on your back. please take the medications as prescribed. please follow up with your doctor in 3-5 days for reevaluation. please return to the ER immediately if you develop intractable pain, leg weakness, loss of control of your bowel function, inabiltiy to urinate , or any numbness in your pelvic region. Prescriptions: Ibuprofen [Motrin 600 Mg Tablet] 600 mg PO TID #20 tablet Forms: Special Work Note, Return to Work Referrals: KATHY CAMERON MD [Primary Care Provider] - Follow up in 3-5 days
[2018-07-05 02:42] VITALS: BP 187/93
== END 2018-07-05 01:45 | disposition home or self-care (01) ==
LOC: ER 23:28
DX: M54.41 Lumbago with sciatica, right side (principal); I10 Essential (primary) hypertension
CPT/HCPCS: 99283; 96372; J1170

== ENCOUNTER → 2018-07-11 | Outpatient (CLI) | payer BC ==
--- NOTE | 2018-07-11 16:35 | RADIOLOGY REPORT (SQ) ---
EXAM DESCRIPTION: MRI LUMBAR SPINE COMBO COMPLETED DATE/TIME: 07/11/2018 8:55 am REASON FOR STUDY: LUMBAGO WITH SCIATICA/R LOW BACK PAIN M54.40 LUMBAGO WITH SCIATICA, UNSPECIFIED S NEIL COMPARISON: CT chest abdomen pelvis 09/24/2017 TECHNIQUE: Sagittal and Axial imaging includes T1, T1 post gadolinium, T2, STIR and gradient echo se quences. Coronal T2/HASTE imaging. CONTRAST TYPE AND DOSE: 20 mL Dotarem. RENAL FUNCTION: GFR > 60. LIMITATIONS: None. FINDINGS: VISUALIZED UPPER ABDOMEN: Limited evaluation. No acute or suspicious findings suggested. SEGMENTATION: No transitional anatomy. The lowest well-developed disc space is labeled L5-S1. ALIGNMENT: Anatomic. VERTEBRAE: Intact. No fractures. BONE MARROW: Normal. No marrow replacement or reactive changes. DISC SIGNAL: Decreased T2 weighted intervertebral disc signal from L2-3 through L5-S1. POSTERIOR ELEMENTS: Generally intact. No pars defect evident. HARDWARE: None in the spine. CORD AND CONUS: Normal in size and signal intensity. Conus at the L1-2 level. SOFT TISSUES: No aortic aneurysm seen. No bulky retroperitoneal adenopathy or mass. No paraspinal mas s or fluid. T11-12: At the upper edge of the field of view. Bulky bilateral facet hypertrophy is present causin g mild central canal narrowing and mild bilateral foraminal narrowing at T11-12. T12-L1: Unremarkable L1-L2: Moderate bilateral facet and ligament hypertrophy. No central or foraminal stenosis. L2-L3: Moderate bilateral facet hypertrophy. Mild posterior disc bulge with more diffuse left forami nal and lateral bulge. No central stenosis. Mild right and moderate left foraminal narrowing withou t definite exiting L2 nerve root impingement L3-L4: Mild diffuse posterior disc bulge and bony spurring is present with moderate bilateral facet a nd ligament hypertrophy. Moderate to marked bilateral foraminal narrowing is present, left greater t jarrett right, without definite exiting L3 nerve root impingement L4-L5: Broad diffuse posterior disc bulging and moderate bilateral facet and ligament hypertrophy are present. No central stenosis. Moderate to marked bilateral foraminal narrowing is present right gr eater than left with effacement of the fat around the exiting L4 nerve roots right greater than left. L5-S1: Mild diffuse posterior disc bulging is present, moderate bilateral facet and ligament hypertro phy. No central stenosis. Moderate bilateral foraminal narrowing without exiting L5 nerve root impi ngement. SACRUM: Visualized upper sacrum intact. ENHANCEMENT: No abnormal conus or nerve root enhancement. No abnormal vertebral body enhancement OTHER: No other significant findings. IMPRESSION: Diffuse degenerative changes with foraminal narrowing most pronounced at L3-4 and L4-5 b reyna TECHNICAL DOCUMENTATION: JOB ID: [id number] [email or web address]- All Rights Reserved Reading location - IP/workstation name: [facility]
--- NOTE | 2018-07-12 09:13 | RADIOLOGY REPORT (SQ) ---
EXAM DESCRIPTION: MRI THORACIC SPINE COMBO COMPLETED DATE/TIME: 07/11/2018 8:55 am REASON FOR STUDY: LUMBAGO WITH SCIATICA/R LOW BACK PAIN M54.40 LUMBAGO WITH SCIATICA, UNSPECIFIED S NEIL COMPARISON: None. TECHNIQUE: Sagittal and Axial imaging includes T1, T2, STIR and gradient echo sequences. T1 post ga dolinium sequences. CONTRAST TYPE AND DOSE: 20 mL Dotarem. RENAL FUNCTION: GFR > 60. LIMITATIONS: None. FINDINGS: LOCALIZER: No worrisome findings. ALIGNMENT: Normal. VERTEBRAE: Intact. BONE MARROW: Normal. No marrow replacement or reactive changes. HARDWARE: None in the spine. CORD: Normal in size and signal intensity. SOFT TISSUES: No soft tissue masses. THORACIC DISCS T1-T12: No thoracic disc protrusion/herniation. There is diffuse facet arthropathy wi th bony sclerosis, and mild ligamentum flavum thickening throughout the thoracic spine. This is most pronounced at T9-10, T10-11, T11-12, and T12-L1 with mild central canal narrowing at these levels, and moderate bilateral foraminal narrowing at these levels. LOWER CERVICAL: Incompletely imaged. No significant spinal stenosis or exit foraminal stenosis. UPPER LUMBAR: Incompletely imaged. No significant spinal stenosis or exit foraminal stenosis. ENHANCEMENT: No abnormal thoracic cord or thoracic nerve root enhancement. OTHER: No other significant finding. IMPRESSION: Lower thoracic bilateral facet arthropathy with mild central canal narrowing and moderat e bilateral foraminal narrowing from T9-10 through T12-L1 TECHNICAL DOCUMENTATION: JOB ID: [id number] [employer]- All Rights Reserved Reading location - IP/workstation name: [facility]
== END ==
LOC: RAD 06:45
PROVIDERS: ATTEND Internal Medicine Medical Oncology
DX: M54.40 Lumbago with sciatica, unspecified side (principal)
CPT/HCPCS: 82565; 72157; 72158; A9576

== ENCOUNTER → 2018-07-23 | Outpatient (CLI) | payer BC | LOC: OD 08:29 | PROVIDERS: ATTEND Urology | DX: N40.0 Benign prostatic hyperplasia without lower urinary tract symptoms (principal); R97.20 Elevated prostate specific antigen [PSA] | CPT/HCPCS: 36415; 84153 ==

== ENCOUNTER 2019-09-26 20:39 | Emergency (ER) | payer SELFPAY ==
--- NOTE | 2019-09-26 20:51 | ER Document Report ---
ED Medical Screen (RME) - General Chief Complaint: Abdominal Pain Stated Complaint: ABDOMINAL PAIN/BLOOD IN URINE Time Seen by Provider: 09/26/19 20:46 Primary Care Provider: KATHY CAMERON MD [Primary Care Provider] - Follow up as needed Mode of Arrival: Ambulatory Information source: Patient Notes: 59-year-old male with history of aneurysm, hernia repair, colon cancer presents emergency department with reports of back pain and hematuria for the last 3 to 4 days. Patient's blood pressure is elevated reports he just found out his primary care provider had a stroke and he has been able to get his blood pressure medication. I have greeted and performed a rapid initial assessment of this patient. A comprehensive ED assessment and evaluation of the patient, analysis of test results and completion of the medical decision making process will be conducted by additional ED providers. TRAVEL OUTSIDE OF THE [place] IN LAST 30 DAYS: No - Related Data Allergies/Adverse Reactions: No Known Allergies Allergy (Verified 04/06/17 10:29) Past Medical History - Past Medical History Cardiac Medical History: Reports: Hx Hypertension Denies: Hx Coronary Artery Disease, Hx Heart Attack Pulmonary Medical History: Denies: Hx Asthma, Hx Bronchitis, Hx COPD, Hx Pneumonia Neurological Medical History: Denies: Hx Cerebrovascular Accident, Hx Seizures Renal/ Medical History: Denies: Hx Peritoneal Dialysis Musculoskeltal Medical History: Denies Hx Arthritis Past Surgical History: Reports: Hx Abdominal Surgery - hernia - Immunizations Hx Diphtheria, Pertussis, Tetanus Vaccination: Yes Doctor's Discharge - Discharge Referrals: KATHY CAMERON MD [Primary Care Provider] - Follow up as needed
[2019-09-26 21:42] LABS: ABSOLUTE EOSINOPHILS # (AUTO) 0.1 10^3/uL (0.0-0.6); ABSOLUTE LYMPHOCYTES (AUTO) 1.5 10^3/uL (0.5-4.7); ABSOLUTE MONOCYTES (AUTO) 0.9 10^3/uL (0.1-1.4); ABSOLUTE NEUT (AUTO) 4.2 10^3/uL (1.7-8.2); BASOPHILS % (AUTO) 0.5 % (0-2); HEMATOCRIT 42.1 % (37.9-51.0); HEMOGLOBIN 13.6 g/dL (13.5-17.0); LYMPHOCYTES % (AUTO) 21.5 % (13-45); MEAN CORPUSCULAR HEMOGLOBIN 23.2 pg (27.0-33.4); MEAN CORPUSCULAR HGB CONC 32.3 g/dL (32.0-36.0); MEAN CORPUSCULAR VOLUME 72 fl (80-97); MONOCYTES % (AUTO) 13.9 % (3-13); PLATELET COUNT 196 10^3/uL (150-450); RED BLOOD COUNT 5.85 10^6/uL (4.35-5.55); RED CELL DISTRIBUTION WIDTH 16.6 % (11.5-14.0); SEGMENTED NEUTROPHILS % (AUTO) 62.1 % (42-78); TOTAL CELLS COUNTED % (AUTO) 100 %; WHITE BLOOD COUNT 6.8 10^3/uL (4.0-10.5)
[2019-09-26 21:47] LABS: APPEARANCE,URINE CLOUDY; BILIRUBIN,URINE NEGATIVE (NEGATIVE); COLOR,URINE RED; GLUCOSE, URINE NEGATIVE (NEGATIVE); KETONES,URINE NEGATIVE (NEGATIVE); LEUKOCYTE ESTERASE,URINE NEGATIVE (NEGATIVE); NITRITE,URINE NEGATIVE (NEGATIVE); PROTEIN,URINE 100 mg/dL (NEGATIVE); URINE SPECIFIC GRAVITY 1.024; UROBILINOGEN,URINE NEGATIVE mg/dL (<2.0)
[2019-09-26 22:02] LABS: ALBUMIN 4.3 g/dL (3.5-5.0); ALKALINE PHOSPHATASE 86 U/L (38-126); ANION GAP 10 (5-19); ASPARTATE AMINO TRANSFERASE 36 U/L (17-59); BILIRUBIN,DIRECT 0.2 mg/dL (0.0-0.4); BILIRUBIN,TOTAL 0.7 mg/dL (0.2-1.3); BLOOD UREA NITROGEN 14 mg/dL (7-20); CALCIUM 9.6 mg/dL (8.4-10.2); CARBON DIOXIDE 32 mmol/L (22-30); CHLORIDE 100 mmol/L (98-107); GLUCOSE 109 mg/dL (75-110); POTASSIUM 3.8 mmol/L (3.6-5.0); TOTAL PROTEIN 7.9 g/dL (6.3-8.2)
--- NOTE | 2019-09-26 22:04 | RADIOLOGY REPORT (SQ) ---
EXAM DESCRIPTION: US RETROPERITONEUM LIMITED COMPLETED DATE/TME: 09/26/2019 20:49 CLINICAL HISTORY: 59 years, Male, flank pain hematuria COMPARISON: Prior CT from 09/24/2017 TECHNIQUE: Axial 2-D grayscale images of the retroperitoneum were obtained. Doppler was utilized. LIMITATIONS: None. FINDINGS: Right kidney measures 10.7 x 4.4 x 4.7 cm in size. It contains an hypoechoic lesion emanating from the interpolar region measuring 1.3 x 1.1 cm in size. This was previously found to represent a simple renal cyst on the previous CT dated 09/24/2017. In addition, there is an echogenic focus located within the upper pole of the right kidney measuring 0.4 cm in size. Left kidney measures 11.9 x 5.1 x 5.1 cm in size. There is no hydronephrosis. Prostate gland measures 4.4 x 6.6 x 5.6 cm in size. The urinary bladder is partially collapsed, thus its evaluation is limited. IMPRESSION: No evidence of hydronephrosis. Suspect right nephrolithiasis. Prostatomegaly. copyright 2010 [employer]- All Rights Reserved
--- NOTE | 2019-09-27 01:55 | ER Document Report ---
ED GI/ - General Chief Complaint: Urinary Problem Stated Complaint: ABDOMINAL PAIN/BLOOD IN URINE Time Seen by Provider: 09/26/19 20:46 Primary Care Provider: KATHY CAMERON MD [Primary Care Provider] - Follow up as needed Mode of Arrival: Ambulatory Information source: Patient Notes: This 59-year-old man presented with a complaint of blood in his urine. He also complains of pain in the lower abdominal area. He has a prior history of colon cancer and he denies fever or chills or dysuria. TRAVEL OUTSIDE OF THE [place] IN LAST 30 DAYS: No - HPI Patient complains to provider of: Abdominal pain - Related Data Allergies/Adverse Reactions: No Known Allergies Allergy (Verified 04/06/17 10:29) Home Medications: was on lisinopril- no current script Past Medical History - General Information source: Patient - Social History Smoking Status: Current Every Day Smoker Drug Abuse: Marijuana Family History: Reviewed & Not Pertinent Patient has suicidal ideation: No Patient has homicidal ideation: No - Past Medical History Cardiac Medical History: Reports: Hx Hypertension Denies: Hx Coronary Artery Disease, Hx Heart Attack Pulmonary Medical History: Denies: Hx Asthma, Hx Bronchitis, Hx COPD, Hx Pneumonia Neurological Medical History: Denies: Hx Cerebrovascular Accident, Hx Seizures Renal/ Medical History: Denies: Hx Peritoneal Dialysis Musculoskeletal Medical History: Denies Hx Arthritis Past Surgical History: Reports: Hx Abdominal Surgery - hernia, colon - Immunizations Hx Diphtheria, Pertussis, Tetanus Vaccination: Yes Review of Systems - Review of Systems Notes: Constitutional: Negative for fever. HENT: Negative for sore throat. Eyes: Negative for visual changes. Cardiovascular: Negative for chest pain. Respiratory: Negative for shortness of breath. Gastrointestinal: + LOWER ABDOMINAL PAIN Genitourinary: + Hematuria Musculoskeletal: Negative for back pain. Skin: Negative for rash. Neurological: Negative for headaches, weakness or numbness. 10 point ROS negative except as marked above and in HPI. Physical Exam - Vital signs Vitals: Temp Pulse Resp BP Pulse Ox 97.2 F 79 16 200/108 H 98 09/26/19 20:52 09/26/19 20:52 09/26/19 20:52 09/26/19 20:52 09/26/19 20:52 - Notes Notes: PHYSICAL EXAMINATION: Physical Exam: General: Well-nourished well-developed male in no acute distress HEENT: NC/AT, pupils equal round and reactive to light, MM moist,nares clear, oropharynx clear Neck: supple, no adenopathy, no masses. Lungs: clear, no wheezing, no rales no rhonchi CVS: Regular rate and rhythm no murmur gallop or rub Abdomen: Soft active + Lower abdominal tenderness/suprapubic, no vomiting or sun rrhea. Back: No CVA tenderness Ext: No edema clubbing or cyanosis. Neuro: Alert and responsive, moving all 4 extremities on command, cranial nerves intact. Skin: Intact no open lesions, no rash PSYCH: Normal mood, normal affect. Course - Re-evaluation Re-evalutation: 09/27/19 03:01 Patient presents with a history of blood in his urine, untreated and uncontrolled hypertension, apparently has not seen a primary care doctor in some time. Imaging and laboratory data suggests hemorrhage secondary to chronic bladder wall thickening and partial outlet obstruction secondary to enlarged prostate. I discussed this with the patient and explained to him that will be given antibiotics and start him back on lisinopril 20 mg daily for blood pressure. He has to follow-up with an outpatient clinic in the next week. The patient and family affirms that he will follow-up. - Vital Signs Vital signs: Temp Pulse Resp BP Pulse Ox 97.2 F 79 22 H 183/94 H 100 09/26/19 20:52 09/26/19 20:52 09/27/19 01:00 09/27/19 01:23 09/27/19 01:23 - Laboratory Result Diagrams: 09/26/19 21:20 09/26/19 21:20 Laboratory results interpreted by me: 09/26/19 09/26/19 09/26/19 21:20 21:20 21:20 RBC 5.85 H MCV 72 L MCH 23.2 L RDW 16.6 H [place] % (Auto) 13.9 H Carbon Dioxide 32 H Creatinine 1.26 H Est GFR (MDRD) Non-Af 59 L Urine Protein 100 H Urine Blood LARGE H 09/27/19 02:59 I have reviewed laboratory data and used this information for the treatment d ecisions regarding the patient. - Diagnostic Test Radiology reviewed: Image reviewed, Reports reviewed - Renal ultrasound: No evidence of hydronephrosis, suspect right nephrolithiasis, prostatomegaly. CT abdomen and pelvis, noncontrast study: Markedly enlarged prostate, chronically thickened wall of the bladder, no acute hydronephrosis or kidney stone noted. Discharge - Discharge Clinical Impression: Hemorrhagic cystitis, Enlarged prostate, Uncontrolled hypertension Condition: Good Disposition: HOME, SELF-CARE Instructions: High Blood Pressure, Requiring Treatment ([facility]) Additional Instructions: You are diagnosed with hemorrhagic cystitis, enlarged prostate, and poorly controlled hypertension. We are providing you with a prescription for antibiotics, blood pressure medications and suggest that you follow-up with your physician during the upcoming week. [facility], [address] [place] [address], phone number [phone] may be able to provide that follow-up. Referrals: KATHY CAMERON MD [Primary Care Provider] - Follow up as needed
[2019-09-27] MEDS ORDERED: LISINOPRIL 10 MG TABLET PO ONE (01:56)
[2019-09-27] MEDS ORDERED: LABETALOL HCL INJ 20 MG/4 ML DISP.SYRIN IV ONE (01:57)
--- NOTE | 2019-09-27 02:07 | RADIOLOGY REPORT (SQ) ---
CT abdomen and pelvis without contrast on 09/27/2019 at 1:30 AM CLINICAL INDICATION: Hematuria TECHNIQUE: Multiple axial images are obtained throughout the abdomen and pelvis without the administration of contrast. This exam was performed according to our departmental dose-optimization program, which includes automated exposure control, adjustment of the mA and/or kV according to patient size and/or use of iterative reconstruction technique. Total DLP is 911.23 mGy*cm. COMPARISON: 09/24/2017 FINDINGS: Abdomen: There is minimal basilar atelectasis or scarring. Bilateral renal cysts are noted. There are no renal or ureteral stones and no hydronephrosis. The unenhanced solid abdominal organs are otherwise unremarkable. There is no abdominal adenopathy. There is no free fluid or free air within the abdomen. The patient is status post partial colon resection with primary anastomosis in the midabdomen. The abdominal portion of the GI tract is otherwise unremarkable. Pelvis: There is diverticulosis. The prostate is markedly enlarged, please correlate with physical exam and PSA levels. Significant changes of osteoarthritis are noted in the right hip. There are calcifications along the distal right iliopsoas tendon that may be loose bodies in the iliopsoas bursa. There is a small left inguinal hernia containing only fat. There is mild bladder wall thickening that may be related to chronic bladder outlet obstruction although cannot exclude cystitis and recommend correlation with urinalysis. There is no pelvic adenopathy. Pelvic portion of the GI tract including the appendix is otherwise unremarkable. Degenerative changes are noted in the spine. IMPRESSION: 1. Mild bladder wall thickening that may just be related to chronic bladder outlet obstruction but recommend correlation with urinalysis to exclude cystitis. 2. Diverticulosis. 3. Marked prostate enlargement.
[2019-09-27 03:10] VITALS: BP 165/94
[2019-09-27] MEDS ORDERED: CEPHALEXIN 500 MG CAPSULE PO ONE (03:10)
== END 2019-09-27 03:32 | disposition home or self-care (01) ==
LOC: ER 20:39
DX: N40.1 Benign prostatic hyperplasia with lower urinary tract symptoms (principal); N30.91 Cystitis, unspecified with hematuria; I10 Essential (primary) hypertension; R39.198 Other difficulties with micturition; R31.9 Hematuria, unspecified; R10.30 Lower abdominal pain, unspecified; F17.200 Nicotine dependence, unspecified, uncomplicated
CPT/HCPCS: 36415; 74176; 76775; 80053; 81001; 85025; 99284

== ENCOUNTER 2019-11-19 00:53 | Emergency (ER) | payer SELFPAY ==
[2019-11-19 02:37] LABS: ABSOLUTE LYMPHOCYTES (AUTO) 0.7 10^3/uL (0.5-4.7); ABSOLUTE MONOCYTES (AUTO) 1.2 10^3/uL (0.1-1.4); ABSOLUTE NEUT (AUTO) 7.6 10^3/uL (1.7-8.2); BASOPHILS % (AUTO) 0.3 % (0-2); EOSINOPHILS % (AUTO) 0.2 % (0-6); HEMATOCRIT 44.2 % (37.9-51.0); HEMOGLOBIN 14.7 g/dL (13.5-17.0); LYMPHOCYTES % (AUTO) 7.8 % (13-45); MEAN CORPUSCULAR HEMOGLOBIN 23.4 pg (27.0-33.4); MEAN CORPUSCULAR HGB CONC 33.3 g/dL (32.0-36.0); MEAN CORPUSCULAR VOLUME 70 fl (80-97); MONOCYTES % (AUTO) 12.1 % (3-13); PLATELET COUNT 219 10^3/uL (150-450); RED BLOOD COUNT 6.29 10^6/uL (4.35-5.55); RED CELL DISTRIBUTION WIDTH 14.7 % (11.5-14.0); SEGMENTED NEUTROPHILS % (AUTO) 79.6 % (42-78); TOTAL CELLS COUNTED % (AUTO) 100 %; WHITE BLOOD COUNT 9.6 10^3/uL (4.0-10.5)
[2019-11-19 02:59] LABS: ALBUMIN 4.5 g/dL (3.5-5.0); ALKALINE PHOSPHATASE 113 U/L (38-126); ANION GAP 11 (5-19); ASPARTATE AMINO TRANSFERASE 33 U/L (17-59); BILIRUBIN,DIRECT 0.1 mg/dL (0.0-0.4); BILIRUBIN,TOTAL 1.2 mg/dL (0.2-1.3); BLOOD UREA NITROGEN 11 mg/dL (7-20); CALCIUM 9.7 mg/dL (8.4-10.2); CARBON DIOXIDE 28 mmol/L (22-30); CHLORIDE 98 mmol/L (98-107); GLUCOSE 145 mg/dL (75-110); POTASSIUM 3.8 mmol/L (3.6-5.0); TOTAL PROTEIN 8.3 g/dL (6.3-8.2); URIC ACID 7.7 mg/dL (3.5-8.5)
[2019-11-19] MEDS ORDERED: ONDANSETRON HCL INJ/PF 4 MG/2 ML SDV IV ONE (05:14)
[2019-11-19] MEDS ORDERED: HYDROMORPHONE HCL INJ/PF 2 MG/ML AMPULE IV ONE (05:14)
--- NOTE | 2019-11-19 05:16 | ER Document Report ---
ED Medical Screen (RME) - General Chief Complaint: Arm Pain Stated Complaint: LEFT ARM PAIN Time Seen by Provider: 11/19/19 05:08 Notes: 59-year-old male with chief complaint of severe pain to the left elbow and left wrist. Areas have become swollen, hot, and he cannot bend either 1. He states he had something similar years ago and he was told he had gout. He is not treated for gout. He denies injury, fever, surgery on the arm, or IV drug abuse. He states he is treated for hypertension and did take his medications. He denies chest pain, shortness of breath, or any other symptoms. TRAVEL OUTSIDE OF THE [place] IN LAST 30 DAYS: No - Related Data Allergies/Adverse Reactions: No Known Allergies Allergy (Verified 04/06/17 10:29) Past Medical History - Social History Chew tobacco use (# tins/day): No Frequency of alcohol use: None Drug Abuse: None - Past Medical History Cardiac Medical History: Reports: Hx Hypertension Denies: Hx Coronary Artery Disease, Hx Heart Attack Pulmonary Medical History: Denies: Hx Asthma, Hx Bronchitis, Hx COPD, Hx Pneumonia Neurological Medical History: Denies: Hx Cerebrovascular Accident, Hx Seizures Renal/ Medical History: Denies: Hx Peritoneal Dialysis Musculoskeltal Medical History: Denies Hx Arthritis Past Surgical History: Reports: Hx Abdominal Surgery - hernia, colon - Immunizations Hx Diphtheria, Pertussis, Tetanus Vaccination: Yes Physical Exam - Vital signs Vitals: Temp Pulse Resp BP Pulse Ox 98.1 F 101 H 20 245/121 H 99 11/19/19 01:28 11/19/19 01:28 11/19/19 01:28 11/19/19 01:28 11/19/19 01:28 - Extremities General upper extremity: Tender - Tender with warmth and swelling at the left elbow and left wrist, unable to bend either 1, distal sensation and capillary refill intact Course - Re-evaluation Re-evalutation: Patient is severely hypertensive, has heat and swelling to both left wrist and left elbow, he cannot bend to either the wrist or the elbow. Adding ESR, CRP, uric acid to the pending work-up, pending imaging, giving pain medication, placing on monitor. I have greeted and performed a rapid initial assessment of this patient. A comprehensive ED assessment and evaluation of the patient, analysis of test results and completion of the medical decision making process will be conducted by additional ED providers. - Vital Signs Vital signs: Temp Pulse Resp BP Pulse Ox 98.1 F 101 H 20 245/121 H 99 11/19/19 01:28 11/19/19 01:28 11/19/19 01:28 11/19/19 01:28 11/19/19 01:28 - Laboratory Result Diagrams: 11/19/19 02:23 11/19/19 02:23 Laboratory results interpreted by me: 11/19/19 11/19/19 02:23 02:23 RBC 6.29 H MCV 70 L MCH 23.4 L RDW 14.7 H Lymph % (Auto) 7.8 L Seg Neutrophils % 79.6 H Sodium 136.5 L Glucose 145 H Total Protein 8.3 H
[2019-11-19 06:23] LABS: URIC ACID 7.8 mg/dL (3.5-8.5)
[2019-11-19 06:37] LABS: C-REACTIVE PROTEIN 149.3 mg/L (<10.0)
--- NOTE | 2019-11-19 06:54 | RADIOLOGY REPORT (SQ) ---
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 COMPARISON: None available HISTORY: 59-year-old patient with left wrist pain, inability to bend the wrist. FINDINGS: The joint spaces are congruent. There are no findings to suggest an acute fracture or subluxation. The soft tissues are unremarkable. The scapholunate interval is within normal limits. The carpal arcs appear to be intact. IMPRESSION: There are no findings to suggest an acute fracture or subluxation of the left wrist.
--- NOTE | 2019-11-19 06:55 | RADIOLOGY REPORT (SQ) ---
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 COMPARISON: None available TECHNIQUE: AP and lateral images of the left elbow were obtained. FINDINGS: There is diffuse soft tissue swelling seen around the left elbow associated with a trace left effusion. There are no findings to suggest an acute fracture or subluxation of the left elbow. There is some mild degenerative spurring seen at the olecranon. There is subtle irregularity of the mid diaphysis of the left ulna which may need further evaluation with radiographs. IMPRESSION: There are no findings to suggest an acute fracture or subluxation of the left elbow. There is some subtle irregularity at the mid diaphysis of the ulna which may need further evaluation with forearm radiographs.
[2019-11-19] MEDS ORDERED: COLCHICINE 0.6 MG TABLET PO ONE ×2 (08:26→10:00)
[2019-11-19] MEDS ORDERED: PREDNISONE 20 MG TABLET PO ONE (08:27)
--- NOTE | 2019-11-19 08:28 | ER Document Report ---
ED Extremity Problem, Upper - General Chief Complaint: Arm Pain Stated Complaint: LEFT ARM PAIN Time Seen by Provider: 11/19/19 05:08 Notes: Patient is a 59-year-old male who presents to the emergency department with a chief complaint of left elbow and left wrist pain. His symptoms started about 2 days ago. Patient states that he had pain in his left elbow first and then he had pain in his left wrist. Patient has a history of gout. Patient denies any fever, but states that he is unable to fully extend his left wrist. Patient also has a history of colon cancer, aortic aneurysm rupture, and hypertension. TRAVEL OUTSIDE OF THE [place] IN LAST 30 DAYS: No - Related Data Allergies/Adverse Reactions: No Known Allergies Allergy (Verified 04/06/17 10:29) Past Medical History - Social History Smoking Status: Former Smoker Chew tobacco use (# tins/day): No Frequency of alcohol use: None Drug Abuse: None Family History: Reviewed & Not Pertinent Patient has suicidal ideation: No Patient has homicidal ideation: No - Past Medical History Cardiac Medical History: Reports: Hx Hypertension Denies: Hx Coronary Artery Disease, Hx Heart Attack Pulmonary Medical History: Denies: Hx Asthma, Hx Bronchitis, Hx COPD, Hx Pneumonia Neurological Medical History: Denies: Hx Cerebrovascular Accident, Hx Seizures Renal/ Medical History: Denies: Hx Peritoneal Dialysis Musculoskeletal Medical History: Denies Hx Arthritis Past Surgical History: Reports: Hx Abdominal Surgery - hernia, colon - Immunizations Hx Diphtheria, Pertussis, Tetanus Vaccination: Yes Review of Systems - Review of Systems Notes: REVIEW OF SYSTEMS: CONSTITUTIONAL : Denies recent illness. Denies recent unintentional weight loss. Denies fever, chills, or sweats. EENT: Denies eye, ear, throat, or mouth pain, discharge, or symptoms. Denies nasal or sinus congestion. CARDIOVASCULAR: Denies chest pain. RESPIRATORY: Denies shortness of breath, cough, congestion, difficulty breathing, or wheezing. GASTROINTESTINAL: Denies nausea, vomiting, and diarrhea. Denies abdominal pain. Denies constipation. GENITOURINARY: Denies difficulty urinating, burning, blood in urine, urgency or frequency. MUSCULOSKELETAL: See HPI. SKIN: Denies rash, itchiness, or lesions HEMATOLOGIC : Denies easy bruising or bleeding. LYMPHATIC: Denies swollen, painful, enlarged glands. NEUROLOGICAL: Denies no numbness or tingling denies weakness. Denies headache. Denies altered mental status. Denies alteration in speech. PSYCHIATRIC: Denies stress, anxiety, alteration in sleep patterns, or depression. All other systems reviewed and negative. Physical Exam - Vital signs Vitals: Temp Pulse Resp BP Pulse Ox 98.1 F 101 H 20 245/121 H 99 11/19/19 01:28 11/19/19 01:28 11/19/19 01:28 11/19/19 01:28 11/19/19 01:28 - Notes Notes: PHYSICAL EXAMINATION: GENERAL: Appears well, healthy, well-nourished, no acute distress. HEAD: Normocephalic, atraumatic. EYES: PERRL, conjunctiva normal, all extraocular movements intact, sclera nonicteric ENT: Moist mucous membranes. NECK: Supple, no noticeable swelling, redness, rash. Normal range of motion. LUNGS: Equal breath sounds bilaterally and clear to auscultation. No wheezes rales or rhonchi. CARDIOVASCULAR: S1-S2, regular rate, regular rhythm. Radial pulses 2+, normal. ABDOMEN: Normoactive bowel sounds. Soft, nontender, no guarding, no rebound tenderness, and no masses palpated. EXTREMITIES: Decreased range of motion to left wrist and left elbow joint. There is no edema between elbow joint and wrist joint. Tenderness noted to elbow. NEUROLOGICAL: Moves all extremities upon command. Strength 5/5 in all extremi ties. PSYCH: Normal mood, normal affect. SKIN: Warm, dry. No rash, lesions, ulcerations noted. Normal skin turgor. Course - Re-evaluation Re-evalutation: 11/19/19 08:29 No leukocytosis noted. ESR is 25. Chemistries are unremarkable. Liver function tests are also unremarkable. Uric acid is 7.8. CRP is 149.3. Discussed these labs with Dr. Taylor. Dr. Gibbs evaluated the patient. He is stating that the patient most likely has an acute gout flare. Patient will be given colchicine here in the emergency department. 11/19/19 09:34 Patient will receive his second dose of colchicine at 10:00. Patient's blood pressure is still elevated. I suspect it will go down, but it appears as if the patient is chronically high. He denies any headache, blurred vision, or any other symptoms at this time. His renal function is normal and actually better than when he was here in the end of August. I will add hydrochlorothiazide to his medications. Patient will follow-up with [facility] in regards to this visit. Follow-up precautions were given. Verbal discharge instructions were given to the patient. They verbalized understanding. They are stable for discharge. - Vital Signs Vital signs: Temp Pulse Resp BP Pulse Ox 98.1 F 101 H 17 213/116 H 99 11/19/19 01:28 11/19/19 01:28 11/19/19 07:01 11/19/19 09:01 11/19/19 09:01 - Laboratory Result Diagrams: 11/19/19 02:23 11/19/19 02:23 Laboratory results interpreted by me: 11/19/19 11/19/19 11/19/19 02:23 02:23 02:23 RBC 6.29 H MCV 70 L MCH 23.4 L RDW 14.7 H Lymph % (Auto) 7.8 L Seg Neutrophils % 79.6 H ESR 25 H Sodium 136.5 L Glucose 145 H C-Reactive Protein Total Protein 8.3 H 11/19/19 02:23 RBC MCV MCH RDW Lymph % (Auto) Seg Neutrophils % ESR Sodium Glucose C-Reactive Protein 149.3 H Total Protein Discharge - Discharge Clinical Impression: Left arm pain, Swelling of left elbow, Swelling of left wrist, Essential hypertension Gout Qualifiers: Gout site: multiple sites Gout etiology: unspecified cause Chronicity: acute Q ualified Code(s): M10.9 - Gout, unspecified Condition: Stable Disposition: HOME, SELF-CARE Additional Instructions: Gout You have been diagnosed as having gout. Gout is a problem caused by an excess of uric acid, a natural chemical found in the body. The cause of this disease is unknown. Gout arthritis occurs when crystals of uric acid form in the joints. The big toe is the most common joint involved, but any joint can become affected. Persons with gout may also form uric acid kidney stones, resulting in flank pain and blood in the urine. Nodules of uric acid may form under the skin. The first step of treatment is to decrease the inflammation in the joint with antiinflammatory medication. Medication to lower the uric acid level in the blood may then be prescribed. This medication should be taken regularly, as any sudden change in dosage may provoke an attack of gout. Some foods, such as red meat, can provoke an attack in some gout sufferers. Call the doctor if new symptoms arise, or if you do not improve. Gout Diet Changing your diet can decrease the uric acid in your blood. High levels of uric acid cause gouty arthritis and uric acid kidney stones. If you have gout, you should avoid meats that are high in purine. Meat products to avoid include liver, kidneys, and brains. In general, poultry is better than red meats. Seafoods to avoid include anchovies, sardines, prince, mackerel, and scallops. In addition to limiting purine-rich foods, people with gout should limit protein intake to 10-15% of total calories. Carbohydrate intake should be around 50% of total daily calories. Limit fat intake to 30% of total daily calories. Cholesterol intake should be less than 300 mg/day. Maintain or achieve a healthy body weight. Weight loss should be gradual. Rapid weight loss can actually increase uric acid levels temporarily. Alcohol, especially beer, should be avoided. Get plenty of fluids. This dilutes urinary uric acid, and helps prevent uric acid kidney stones. Drink eight to twelve cups of water daily. Your blood pressure was also elevated here in the emergency department. You are being started on hydrochlorothiazide, more blood pressure medication. Please follow-up closely with your primary care provider. Prescriptions: Prednisone [Deltasone 20 mg Tablet] 3 tab PO DAILY 4 Days #12 tablet Hydrochlorothiazide [Hydrodiuril 12.5 mg Tablet] 12.5 mg PO QAM #30 capsule Forms: Elevated Blood Pressure Referrals: [facility] [Provider Group] - Follow up in 1 week
[2019-11-19] MEDS ORDERED: LISINOPRIL 10 MG TABLET PO ONE (08:29)
[2019-11-19] MEDS ORDERED: HYDROCODONE/ACETAMINOPHEN 5-325 MG (6 TAB/ER DISP) PO PRN (09:23)
[2019-11-19 10:33] VITALS: BP 205/113
== END 2019-11-19 10:30 | disposition home or self-care (01) ==
LOC: ER 00:53
DX: M10.9 Gout, unspecified (principal); I10 Essential (primary) hypertension; M25.522 Pain in left elbow; M25.532 Pain in left wrist; M25.422 Effusion, left elbow; M25.432 Effusion, left wrist; Z85.038 Personal history of other malignant neoplasm of large intestine
CPT/HCPCS: 99283; 36415; 84550; 85025; 85652; 86140; 80053; 73080; 73110; J1170; J7512; J2405

== ENCOUNTER 2020-03-19 13:59 | Emergency (ER) | payer SELFPAY ==
--- NOTE | 2020-03-19 14:36 | ER Document Report ---
ED Medical Screen (RME) - General Chief Complaint: Urinary Retention Stated Complaint: URINARY ISSUE Time Seen by Provider: 03/19/20 14:29 Mode of Arrival: Ambulatory Information source: Patient Notes: This a 59-year-old male who presents to the emergency room today with urinary retention he has not fully voided in over 2 days he does have a history of hypertension which is probably a little higher right now than normal. He is diaphoretic although he denies chest pain shortness of breath. TRAVEL OUTSIDE OF THE [place] IN LAST 30 DAYS: No - Related Data Allergies/Adverse Reactions: No Known Allergies Allergy (Verified 04/06/17 10:29) Past Medical History - Social History Frequency of alcohol use: None Drug Abuse: None - Past Medical History Cardiac Medical History: Reports: Hx Hypertension Denies: Hx Coronary Artery Disease, Hx Heart Attack Pulmonary Medical History: Denies: Hx Asthma, Hx Bronchitis, Hx COPD, Hx Pneumonia Neurological Medical History: Denies: Hx Cerebrovascular Accident, Hx Seizures Renal/ Medical History: Denies: Hx Peritoneal Dialysis Musculoskeltal Medical History: Denies Hx Arthritis Past Surgical History: Reports: Hx Abdominal Surgery - hernia, colon - Immunizations Hx Diphtheria, Pertussis, Tetanus Vaccination: Yes Physical Exam - Vital signs Vitals: Temp Pulse Resp Pulse Ox 98.6 F 99 18 99 03/19/20 14:10 03/19/20 14:10 03/19/20 14:10 03/19/20 14:10 Course - Vital Signs Vital signs: Temp Pulse Resp BP Pulse Ox 98.6 F 99 18 230/106 H 99 03/19/20 14:10 03/19/20 14:10 03/19/20 14:10 03/19/20 14:16 03/19/20 14:10
[2020-03-19 15:40] LABS: ALKALINE PHOSPHATASE 112 U/L (38-126); ANION GAP 10 (5-19); ASPARTATE AMINO TRANSFERASE 34 U/L (17-59); BILIRUBIN,DIRECT 0.1 mg/dL (0.0-0.4); BILIRUBIN,TOTAL 0.8 mg/dL (0.2-1.3); BLOOD UREA NITROGEN 17 mg/dL (7-20); CALCIUM 10.5 mg/dL (8.4-10.2); CARBON DIOXIDE 30 mmol/L (22-30); CHLORIDE 101 mmol/L (98-107); GLUCOSE 127 mg/dL (75-110); TOTAL PROTEIN 8.7 g/dL (6.3-8.2)
[2020-03-19] MEDS ORDERED: LISINOPRIL 10 MG TABLET PO ONE (16:40)
[2020-03-19 17:01] LABS: APPEARANCE,URINE CLEAR; BILIRUBIN,URINE NEGATIVE (NEGATIVE); COLOR,URINE YELLOW; GLUCOSE, URINE 50 mg/dL (NEGATIVE); KETONES,URINE NEGATIVE (NEGATIVE); LEUKOCYTE ESTERASE,URINE NEGATIVE (NEGATIVE); NITRITE,URINE NEGATIVE (NEGATIVE); PROTEIN,URINE 100 mg/dL (NEGATIVE); URINE SPECIFIC GRAVITY 1.017; UROBILINOGEN,URINE NEGATIVE mg/dL (<2.0)
--- NOTE | 2020-03-19 18:07 | ER Document Report ---
ED General - General Chief Complaint: Urinary Retention Stated Complaint: URINARY ISSUE Time Seen by Provider: 03/19/20 14:29 Mode of Arrival: Ambulatory Information source: Patient TRAVEL OUTSIDE OF THE [place] IN LAST 30 DAYS: No - HPI Notes: Patient presents complaining of severe abdominal pain and the inability to urinate. He states this is been going on since this morning. Movements makes it worse nothing makes it better. The pain radiates up into his lower abdomen. He states he has had this problem before and has had to have a catheter placed in the past. He has had no vomiting or fevers. No problems with stool. - Related Data Allergies/Adverse Reactions: No Known Allergies Allergy (Verified 04/06/17 10:29) Past Medical History - General Information source: Patient - Social History Smoking Status: Former Smoker Frequency of alcohol use: None Drug Abuse: None Family History: Reviewed & Not Pertinent - Past Medical History Cardiac Medical History: Reports: Hx Hypertension Denies: Hx Coronary Artery Disease, Hx Heart Attack Pulmonary Medical History: Denies: Hx Asthma, Hx Bronchitis, Hx COPD, Hx Pneumonia Neurological Medical History: Denies: Hx Cerebrovascular Accident, Hx Seizures Renal/ Medical History: Denies: Hx Peritoneal Dialysis Musculoskeletal Medical History: Denies Hx Arthritis Past Surgical History: Reports: Hx Abdominal Surgery - hernia, colon - Immunizations Hx Diphtheria, Pertussis, Tetanus Vaccination: Yes Review of Systems - Review of Systems Constitutional: denies: Chills, Fever Cardiovascular: denies: Chest pain, Palpitations Respiratory: denies: Cough, Short of breath -: Yes All other systems reviewed and negative Physical Exam - Vital signs Vitals: Temp Pulse Resp Pulse Ox 98.6 F 99 18 99 03/19/20 14:10 03/19/20 14:10 03/19/20 14:10 03/19/20 14:10 Interpretation: Normal - General General appearance: Appears well, Alert - HEENT Head: Normocephalic, Atraumatic Eyes: Normal Pupils: PERRL - Respiratory Respiratory status: No respiratory distress Chest status: Nontender Breath sounds: Normal Chest palpation: Normal - Cardiovascular Rhythm: Regular Heart sounds: Normal auscultation Murmur: No - Abdominal Inspection: Normal Distension: No distension Bowel sounds: Normal Tenderness: Tender - Some moderate tenderness to palpation of the suprapubic area. Organomegaly: No organomegaly - Genitourinary Inspection: Normal Tenderness: Nontender Scrotum: Normal - Back Back: Normal, Nontender - Extremities General upper extremity: Normal inspection, Nontender, Normal color, Normal ROM, Normal temperature General lower extremity: Normal inspection, Nontender, Normal color, Normal ROM, Normal temperature, Normal weight bearing. No: Hakan's sign - Neurological Neuro grossly intact: Yes Cognition: Normal Orientation: AAOx4 Vandana Coma Scale Eye Opening: Spontaneous [place] Coma Scale Verbal: Oriented [place] Coma Scale Motor: Obeys Commands [place] Coma Scale Total: 15 Speech: Normal Motor strength normal: LUE, RUE, LLE, RLE Sensory: Normal - Psychological Associated symptoms: Normal affect, Normal mood - Skin Skin Temperature: Warm Skin Moisture: Dry Skin Color: Normal Course - Re-evaluation Re-evalutation: 03/19/20 18:09 Patient had a urinary catheter placed with significant relief of his symptoms. Patient's blood pressure was also noticed to be elevated. He states he only takes lisinopril for this. He states he has not missed any doses. He states he has not been back to his primary care physician and several months however to have a checkup. I did give the patient an extra dose of his lisinopril and have instructed him that he will need to follow-up with both urology and his primary care physician. - Vital Signs Vital signs: Temp Pulse Resp BP Pulse Ox 98.6 F 99 18 230/106 H 99 03/19/20 14:10 03/19/20 14:10 03/19/20 14:10 03/19/20 14:16 03/19/20 14:10 - Laboratory Result Diagrams: 03/19/20 14:45 Laboratory results interpreted by me: 03/19/20 03/19/20 14:45 16:20 Est GFR (MDRD) Non-Af 59 L Glucose 127 H Calcium 10.5 H Total Protein 8.7 H Urine Protein 100 H Urine Glucose (UA) 50 H Urine Blood MODERATE H Discharge - Discharge Clinical Impression: Acute urinary retention, Uncontrolled hypertension Condition: Stable Disposition: HOME, SELF-CARE Instructions: Urinary Retention ([facility]) Additional Instructions: Please call Dr. Keith first thing in the morning to arrange follow-up for your bladder catheter. Please call your primary care physician at [facility] first thing in the morning to arrange for a reevaluation of your blood pressure. Your current blood pressure is significantly elevated and not being controlled with your current medications. I have added a second medication to help bring your blood pressure under control until you are able to be seen at the [place] clinic. Prescriptions: Hydrochlorothiazide [Hydrodiuril 25 mg Tablet] 25 mg PO QAM #30 tablet Forms: Return to Work, Elevated Blood Pressure Referrals: TRACY KEITH MD [NO LOCAL MD] - Follow up in 3-5 days [facility] [Provider Group] - Follow up as needed
[2020-03-19 18:21] VITALS: BP 162/88
== END 2020-03-19 18:53 | disposition home or self-care (01) ==
LOC: ER 13:59
DX: R33.9 Retention of urine, unspecified (principal); I10 Essential (primary) hypertension; R10.30 Lower abdominal pain, unspecified; Z87.891 Personal history of nicotine dependence; Z79.899 Other long term (current) drug therapy
CPT/HCPCS: 36415; 51702; 80053; 81001; 99283

== ENCOUNTER 2020-03-22 09:17 | Emergency (ER) | payer SELFPAY ==
--- NOTE | 2020-03-22 12:23 | ER Document Report ---
HPI - HPI Time Seen by Provider: 03/22/20 12:16 Pain Level: Denies Context: Patient is a 59-year-old male who presents to the emergency department for a follow-up with his urinary catheter. Patient states that on 19 March he had a Nuñez catheter placed for urinary retention. Patient states that this morning his urine was leaking around the catheter and not going in the bag. She denies any pain. States that he feels he can urinate on his own. Denies any fever, b cristina aches, or chills. - ROS Systems Reviewed and Negative: Yes All other systems reviewed and negative - CONSTITUTIONAL Constitutional: DENIES: Fever, Chills - GASTROINTESTINAL Gastrointestinal: DENIES: Abdominal Pain - URINARY Urinary: DENIES: Dysuria, Urgency, Frequency Notes: See HPI. - REPRODUCTIVE Reproductive: DENIES: : - DERM Skin Color: Normal Skin Problems: None Past Medical History - Social History Smoking Status: Former Smoker Frequency of alcohol use: None Drug Abuse: None Family History: Reviewed & Not Pertinent - Past Medical History Cardiac Medical History: Reports: Hx Hypertension Denies: Hx Coronary Artery Disease, Hx Heart Attack Pulmonary Medical History: Denies: Hx Asthma, Hx Bronchitis, Hx COPD, Hx Pneumonia Neurological Medical History: Denies: Hx Cerebrovascular Accident, Hx Seizures Renal/ Medical History: Denies: Hx Peritoneal Dialysis Musculoskeletal Medical History: Denies Hx Arthritis Past Surgical History: Reports: Hx Abdominal Surgery - hernia, colon - Immunizations Hx Diphtheria, Pertussis, Tetanus Vaccination: Yes Vertical Provider Document - CONSTITUTIONAL Agree With Documented VS: Yes Exam Limitations: No Limitations General Appearance: No Apparent Distress - INFECTION CONTROL TRAVEL OUTSIDE OF THE [place] IN LAST 30 DAYS: No - HEENT HEENT: Atraumatic, Normocephalic, PERRLA - NECK Neck: Normal Inspection - RESPIRATORY Respiratory: No Respiratory Distress - CARDIOVASCULAR Cardiovascular: Regular Rate, Regular Rhythm Pulses: Normal: Radial - GI/ABDOMEN Gastrointestinal: Abdomen Soft, Abdomen Non-Tender - MUSCULOSKELETAL/EXTREMETIES Musculoskeletal/Extremeties: FROM - NEURO Level of Consciousness: Awake, Alert, Appropriate Motor/Sensory: No Motor Deficit, No Sensory Deficit - DERM Integumentary: Warm, Dry, No Rash Course - Re-evaluation Re-evalutation: 03/22/20 12:24 Patient's Nuñez catheter was removed here in the emergency department. He tolerated it well. Patient still has not followed up with Dr. Keith. Advised him to follow-up with Dr. Keith. Verbal instructions to return if he continues to have acute renal urinary retention. Patient is nontoxic in appearance. Follow-up precautions were given. Verbal discharge instructions were given to the patient. They verbalized understanding. They are stable for discharge. - Vital Signs Vital signs: Temp Pulse Resp BP Pulse Ox 98.5 F 77 16 169/86 H 99 03/22/20 09:22 03/22/20 09:22 03/22/20 09:22 03/22/20 09:22 03/22/20 09:22 Discharge - Discharge Clinical Impression: Nuñez catheter problem Qualifiers: Encounter type: initial encounter Qualified Code(s): T83.9XXA - Unspecified complication of genitourinary prosthetic device, implant and graft, initial encounter Condition: Stable Disposition: HOME, SELF-CARE Additional Instructions: You were seen today in the emergency department for your Nuñez catheter leaking. The Nuñez catheter was removed here in the emergency department. Please follow-up with urology. Referrals: TRACY KEITH MD [NO LOCAL MD] - Follow up in 3-5 days
[2020-03-22 12:27] VITALS: BP 173/88
== END 2020-03-22 12:28 | disposition home or self-care (01) ==
LOC: ER 09:17
DX: T83.9XXA Unspecified complication of genitourinary prosthetic device, implant and graft, initial encounter (principal); X58.XXXA Exposure to other specified factors, initial encounter; Y84.6 Urinary catheterization as the cause of abnormal reaction of the patient, or of later complication, without mention of misadventure at the time of the procedure; I10 Essential (primary) hypertension
CPT/HCPCS: 99283

== ENCOUNTER 2020-07-29 12:46 | Emergency (ER) | payer SELFPAY ==
--- NOTE | 2020-07-29 13:18 | ER Document Report ---
ED Medical Screen (RME) - General Chief Complaint: Trouble Voiding Stated Complaint: TROUBLE URINATING Time Seen by Provider: 07/29/20 13:14 Mode of Arrival: Ambulatory Information source: Patient Notes: 60-year-old male presented to ED for frequency urgency but not able to urinate more than a few drops at a time. He states this is been going on since last night. Dates he has been here before for this condition but he does not remember what months. I have updated his medical history. Does have multiple colon surgeries. He has been in here for urinary retention in the past. Patient is alert oriented respirations regular nonlabored going to the bathroom frequently with no results. I have greeted and performed a rapid initial assessment of this patient. A comprehensive ED assessment and evaluation of the patient, analysis of test results and completion of medical decision making process will be conducted by an additional ED providers. TRAVEL OUTSIDE OF THE [place] IN LAST 30 DAYS: No - Related Data Allergies/Adverse Reactions: No Known Allergies Allergy (Verified 03/22/20 12:20) Past Medical History - General Information source: Patient - Social History Cigarette use (# per day): No - Former Frequency of alcohol use: None Drug Abuse: Marijuana Lives with: Family Family history: Reviewed & Not Pertinent - Past Medical History Cardiac Medical History: Reports: Hx Hypertension Denies: Hx Coronary Artery Disease, Hx Heart Attack Pulmonary Medical History: Denies: Hx Asthma, Hx Bronchitis, Hx COPD, Hx Pneumonia Neurological Medical History: Denies: Hx Cerebrovascular Accident, Hx Seizures Endocrine Medical History: Reports: None Renal/ Medical History: Reports: None Malignancy Medical History: Reports Hx Colorectal Cancer GI Medical History: Reports: Hx Colonoscopy, Other - Colon cancer Musculoskeltal Medical History: Denies Hx Arthritis Past Surgical History: Reports: Hx Bowel Surgery - 6 inches of colon due to colon cancer, Hx Inguinal Hernia - Right, Hx Vascular Surgery - 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
--- NOTE | 2020-07-29 13:59 | ER Document Report ---
ED General - General Chief Complaint: Trouble Voiding Stated Complaint: TROUBLE URINATING Time Seen by Provider: 07/29/20 13:14 Mode of Arrival: Ambulatory TRAVEL OUTSIDE OF THE [place] IN LAST 30 DAYS: No - HPI Context: Chief complaint: Difficulty voiding History of present illness: 60-year-old male with past history of intermittent urinary retention comes in today with inability to urinate for the last 12 hours. He feels very distended and uncomfortable. He denies fever, chills, nausea, vomiting or flank pain. Review of prior records shows that he was last here and had a catheter placed in March of this year. He was referred to urology then but apparently never went. The catheter was apparently discontinued by his primary care doctor. Patient is on medications for hypertension. He denies any change in his prescription medications recently. He denies taking any [id number] medications. - Related Data Allergies/Adverse Reactions: No Known Allergies Allergy (Verified 03/22/20 12:20) Past Medical History - General Information source: Patient, [facility] Records - Social History Smoking Status: Smoker,Current Status Unk Cigarette use (# per day): No - Former Frequency of alcohol use: None Drug Abuse: Marijuana Lives with: Family Family History: Reviewed & Not Pertinent - Past Medical History Cardiac Medical History: Reports: Hx Hypertension Denies: Hx Coronary Artery Disease, Hx Heart Attack Pulmonary Medical History: Denies: Hx Asthma, Hx Bronchitis, Hx COPD, Hx Pneumonia Neurological Medical History: Denies: Hx Cerebrovascular Accident, Hx Seizures Endocrine Medical History: Reports: None Renal/ Medical History: Reports: None Malignancy Medical History: Reports Hx Colorectal Cancer GI Medical History: Reports: Hx Colonoscopy, Other - Colon cancer Musculoskeletal Medical History: Denies Hx Arthritis Past Surgical History: Reports: Hx Bowel Surgery - 6 inches of colon due to colon cancer, Hx Inguinal Hernia - Right, Hx Vascular Surgery - 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 HENT: Negative for sore throat. Eyes: Negative for visual changes. Cardiovascular: Negative for chest pain. Respiratory: Negative for shortness of breath. Gastrointestinal: Negative for abdominal pain, vomiting or diarrhea. Genitourinary: As per HPI. Musculoskeletal: Negative for back pain. Skin: Negative for rash. Neurological: Negative for headaches, weakness or numbness. 10 point ROS negative except as marked above and in HPI. Physical Exam - Vital signs Vitals: BP 226/85 H 07/29/20 12:46 Interpretation: Hypertensive - Notes Notes: GENERAL: Well-developed well-nourished male approximately stated age appearing anxious and restless. SKIN: Good turgor no rashes. HEAD: Normocephalic atraumatic. EYES: PERRLA. EOMI. Conjunctivae and sclerae clear. EARS: CANALS AND TMS CLEAR. NOSE: CLEAR. MOUTH: Moist mucosa. Good dentition. No stridor or edema. No drooling. NECK: Supple. No masses or thyromegaly. No adenopathy. Carotids 2+ without bruits. No JVD. BACK: Symmetrical without tenderness. CHEST: Respirations unlabored. Breath sounds clear and symmetrical. HEART: Regular rhythm. No murmur gallop or rub. ABDOMEN: Bladder is palpably distended and mildly tender to palpation. Multiple healed surgical scars present. Bowel sounds normally active. No bruits. GENITALIA: Deferred. EXTREMITIES: No edema. No calf tenderness. Cap refill less than 1.5 seconds. Dorsalis pedis and posterior tibial pulses 3+ and symmetrical. NEUROLOGICAL: GCS 15. Alert and oriented x3. Ambulatory with a cane. Fluent speech. Cranial nerves II through XII intact. Sensorimotor and cerebellar normal. Normal tone. PSYCHIATRIC: Anxious affect. Course - Re-evaluation Re-evalutation: 07/29/20 14:38 Residual urine was greater than 350 cc on bladder scan. Nurse has placed Nuñez catheter and patient is drained 400 cc of tirso urine. 07/29/20 15:31 CBC and comprehensive metabolic profile are unremarkable. Patient had a small amount of blood on catheterized urine specimen and this was otherwise unremarkable. I think this man is stable for outpatient follow-up with urology. We will make a referral for him. He will go home with a catheter in situ and a leg bag. Abdomen put him on some Flomax and some Cipro. Findings, clinical impression and plan of treatment have been discussed with patient/family. Understanding of current findings and recommendations has been acknowledged by them and there is agreement regarding disposition and follow-up. - Vital Signs Vital signs: Temp Pulse Resp BP Pulse Ox 97.5 F 91 20 227/109 H 100 07/29/20 12:58 07/29/20 12:58 07/29/20 12:58 07/29/20 12:58 07/29/20 12:58 - Laboratory Result Diagrams: 07/29/20 13:30 07/29/20 13:30 Laboratory results interpreted by me: 07/29/20 07/29/20 07/29/20 13:30 13:30 14:05 RBC 6.45 H MCV 70 L MCH 22.9 L RDW 16.8 H Seg Neuts % (Manual) 88 H Band Neutrophils % 1 L Lymphocytes % (Manual) 10 L Monocytes % (Manual) 1 L Abs Neuts (Manual) 8.7 H Glucose 150 H Calcium 10.7 H Total Protein 9.4 H Albumin 5.2 H Urine Protein 100 H Urine Blood MODERATE H Discharge - Discharge Clinical Impression: Acute urinary retention Condition: Stable Disposition: HOME, SELF-CARE Additional Instructions: Nuñez Catheter Care Tube Position: Keep the catheter connected to the drainage tubing at all times. Avoid pulling on the catheter. Keep the drainage tube taped to the mid- thigh, on top of your leg (not underneath it). Be sure there are no kinks or l oops in the tube. Keep the drainage bag below the bladder. When in bed, the drainage bag should hang below the abdomen but should not lie on the floor. The drainage bag has hooks at the top so it can be hung on a chair or bed. Daily Cleaning: Wash your hands with soap and water before and after caring for your catheter. Twice a day, clean yourself where the catheter goes into the urethra. Use a warm, soapy wash cloth to clean around the urethral opening and the first few inches of the catheter. Females should wash from front to back to decrease the risk of infection from fecal material. After washing with soap, rinse the area with water. Do not put powder around the catheter. Apply ointment only if instructed by your doctor or nurse. Follow up if you develop fever or chills, flank or abdominal pain, blood in the urine, or if urine is not draining into the catheter. Urinary Retention Urinary retention is inability to empty the bladder. It can result from a urine infection, or from mechanical problems such as an enlarged prostate gland or swelling of the urethra. Drugs or alcohol can also lead to urine retention. The condition is usually treated by passage of a catheter. If the physician thinks the problem will continue, the catheter may be left in place for a few days. Sometimes drugs are used to stimulate the bladder if the physician feels that inadequate bladder contraction is the cause. If the condition leading to the retention is a chronic one, such as an enlarged prostate, you will be referred to a specialist for further care. Call the physician or return if you develop fever, flank or back pain, pain on urination, or recurrent difficulty passing the urine. Take prescribed medications as directed. Schedule an appointment with referral urologist within the next 3 to 5 days. Return here as needed for new or worsening symptoms: Pain that is worsening or unimproved Uncontrolled vomiting High fever or shaking chills Overall worsening Prescriptions: Ciprofloxacin HCl [Cipro 500 mg Tablet] 500 mg PO BID #20 tablet Tamsulosin HCl [Flomax 0.4 mg Cap.sr] 0.4 mg PO DAILY #7 cap.sr.24h Referrals: TRACY CHU MD [NO LOCAL MD] - Follow up as needed
[2020-07-29 14:07] LABS: HEMATOCRIT 45.3 % (37.9-51.0); HEMOGLOBIN 14.8 g/dL (13.5-17.0); MEAN CORPUSCULAR HEMOGLOBIN 22.9 pg (27.0-33.4); MEAN CORPUSCULAR HGB CONC 32.6 g/dL (32.0-36.0); MEAN CORPUSCULAR VOLUME 70 fl (80-97); PLATELET COUNT 242 10^3/uL (150-450); RED BLOOD COUNT 6.45 10^6/uL (4.35-5.55); RED CELL DISTRIBUTION WIDTH 16.8 % (11.5-14.0); WHITE BLOOD COUNT 9.8 10^3/uL (4.0-10.5)
[2020-07-29 14:22] LABS: ABSOLUTE MONOCYTES # (MANUAL) 0.1 10^3/uL (0.1-1.4); BAND NEUTROPHILS % (MANUAL) 1 % (3-5); BASOPHILS % (MANUAL) 0 % (0-2); EOSINOPHILS % (MANUAL) 0 % (0-6); LYMPHOCYTES % (MANUAL) 10 % (13-45); MONOCYTES % (MANUAL) 1 % (3-13); SEGMENTED NEUTROPHILS % (MAN) 88 % (42-78); TOTAL CELLS COUNTED 100
[2020-07-29 14:23] LABS: ANISOCYTOSIS 1+; OVALOCYTES 1+; POIKILOCYTOSIS 1+
[2020-07-29 14:24] LABS: PLATELET COMMENT ADEQUATE
[2020-07-29 14:28] LABS: ALBUMIN 5.2 g/dL (3.5-5.0); ALKALINE PHOSPHATASE 124 U/L (38-126); ANION GAP 16 (5-19); ASPARTATE AMINO TRANSFERASE 40 U/L (17-59); BILIRUBIN,DIRECT 0.1 mg/dL (0.0-0.4); BILIRUBIN,TOTAL 0.7 mg/dL (0.2-1.3); BLOOD UREA NITROGEN 18 mg/dL (7-20); CALCIUM 10.7 mg/dL (8.4-10.2); CARBON DIOXIDE 26 mmol/L (22-30); CHLORIDE 101 mmol/L (98-107); GLUCOSE 150 mg/dL (75-110); TOTAL PROTEIN 9.4 g/dL (6.3-8.2)
[2020-07-29 15:27] LABS: APPEARANCE,URINE CLEAR; BILIRUBIN,URINE NEGATIVE (NEGATIVE); COLOR,URINE YELLOW; GLUCOSE, URINE NEGATIVE (NEGATIVE); KETONES,URINE NEGATIVE (NEGATIVE); LEUKOCYTE ESTERASE,URINE NEGATIVE (NEGATIVE); NITRITE,URINE NEGATIVE (NEGATIVE); PROTEIN,URINE 100 mg/dL (NEGATIVE); URINE SPECIFIC GRAVITY 1.015; UROBILINOGEN,URINE NEGATIVE mg/dL (<2.0)
[2020-07-29 16:09] VITALS: BP 172/89
== END 2020-07-29 16:23 | disposition home or self-care (01) ==
LOC: ER 12:46
DX: R33.9 Retention of urine, unspecified (principal); R31.9 Hematuria, unspecified; I10 Essential (primary) hypertension; F12.10 Cannabis abuse, uncomplicated; Z79.899 Other long term (current) drug therapy; Z85.048 Personal history of other malignant neoplasm of rectum, rectosigmoid junction, and anus; Z90.49 Acquired absence of other specified parts of digestive tract
CPT/HCPCS: 36415; 51702; 80053; 81001; 85025; 87086; 99283

== ENCOUNTER 2020-08-19 11:44 | Emergency (ER) | payer SELFPAY ==
--- NOTE | 2020-08-19 15:05 | ER Document Report ---
Entered by MARIZA CORTES SCRIBE 08/19/20 1422 Acting as scribe for:KYRA WANG MD ED GI/ - General Chief Complaint: Trouble Voiding Stated Complaint: UNABLE TO URINATE Time Seen by Provider: 08/19/20 13:05 Mode of Arrival: Ambulatory Information source: Patient Notes: This 60 year old male patient presents to the ED today with complaints of urinary retention for the past x2 days. Patient was seen on 07/29 for the same complaint and had a miller catheter placed at that time which was removed at [facility] on 08/13. Patient reports pain and burning with urination. He states that he has voided x4 times in the ED, but they were are very small a tameka. Denies fever, nausea, vomiting, or diarrhea. Urology follow-up is still pending at this time per patient's significant other at bedside. TRAVEL OUTSIDE OF THE [place] IN LAST 30 DAYS: No - Related Data Allergies/Adverse Reactions: No Known Allergies Allergy (Verified 03/22/20 12:20) Home Medications: Lisinopril Past Medical History - General Information source: Patient, [facility] Records - Social History Smoking Status: Former Smoker Chew tobacco use (# tins/day): No Frequency of alcohol use: None Drug Abuse: None Family History: Reviewed & Not Pertinent Patient has suicidal ideation: No Patient has homicidal ideation: No - Past Medical History Cardiac Medical History: Reports: Hx Hypertension Renal/ Medical History: Reports: Hx Kidney Stones Malignancy Medical History: Reports Hx Colorectal Cancer GI Medical History: Reports: Hx Colonoscopy Past Surgical History: Reports: Hx Bowel Surgery - 6 inches of colon due to colon cancer, Hx Inguinal Hernia - Right, Hx Vascular Surgery - 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 denies: Fever EENT: No symptoms reported Cardiovascular: No symptoms reported Respiratory: No symptoms reported Gastrointestinal: See HPI. denies: Diarrhea, Nausea, Vomiting Genitourinary: See HPI, Burning, Pain, Retention Male Genitourinary: No symptoms reported Musculoskeletal: No symptoms reported Skin: No symptoms reported Hematologic/Lymphatic: No symptoms reported Neurological/Psychological: No symptoms reported -: Yes All other systems reviewed and negative Physical Exam - Vital signs Vitals: Temp Pulse Resp BP Pulse Ox 97.8 F 80 18 191/101 H 97 08/19/20 11:51 08/19/20 11:51 08/19/20 11:51 08/19/20 11:51 08/19/20 11:51 Interpretation: Normal - General General appearance: Alert In distress: None - HEENT Head: Normocephalic, Atraumatic Eyes: Normal Pupils: PERRL - Respiratory Respiratory status: No respiratory distress Chest status: Nontender Breath sounds: Normal Chest palpation: Normal - Cardiovascular Rhythm: Regular Heart sounds: Normal auscultation Murmur: No Friction rub: No Gallop: None auscultated - Abdominal Inspection: Normal Distension: Distended - Suprapubic Bowel sounds: Normal Tenderness: Tender - Suprapubic tenderness to palpation Organomegaly: No organomegaly - Back Back: Normal, Nontender - Extremities General upper extremity: Normal inspection General lower extremity: Normal inspection - Neurological Neuro grossly intact: Yes Orientation: AAOx4 [place] Coma Scale Eye Opening: Spontaneous Vandana Coma Scale Verbal: Oriented [place] Coma Scale Motor: Obeys Commands Vandana Coma Scale Total: 15 - Psychological Associated symptoms: Normal affect, Normal mood - Skin Skin Temperature: Warm Skin Moisture: Dry Skin Color: Normal Course - Re-evaluation Re-evalutation: 08/19/20 15:22 Patient received a Miller catheter and drained 400 mL pastel yellow urine. Patient's discomfort relieved at this time. Urinalysis sent to lab for urinalysis as well as urine culture. - Vital Signs Vital signs: Temp Pulse Resp BP Pulse Ox 97.8 F 80 18 191/101 H 97 08/19/20 11:51 08/19/20 11:51 08/19/20 11:51 08/19/20 11:51 08/19/20 11:51 08/19/20 15:23 Patient has history of hypertension blood pressure is 191/101 today at 1151. Patient states that he did not take his blood pressure medication until he arrived here at the hospital. We will repeat patient's blood pressure to determine if it is improved. 08/19/20 15:51 Vital signs have improved patient's blood pressure is in the 150s over 80 at the time - Laboratory Result Diagrams: 08/19/20 15:00 08/19/20 15:00 Laboratory results interpreted by me: 08/19/20 08/19/20 15:00 15:00 RBC 5.77 H Hgb 13.0 L MCV 69 L MCH 22.5 L RDW 15.6 H Lymph % (Auto) 12.0 L Seg Neutrophils % 80.9 H Urine Protein 30 H Urine Blood SMALL H - Diagnostic Test Radiology reviewed: Image reviewed, Reports reviewed Radiology results interpreted by me: 08/19/20 15:51 08/19/20 15:00 08/19/20 15:00 MCV 69 fl (80-97) L 08/19/20 15:00 MCH 22.5 pg (27.0-33.4) L 08/19/20 15:00 MCHC 32.6 g/dL (32.0-36.0) 08/19/20 15:00 RDW 15.6 % (11.5-14.0) H 08/19/20 15:00 Seg Neutrophils % 80.9 % (42-78) H 08/19/20 15:00 Chloride 101 mmol/L (98-107) 08/19/20 15:00 Carbon Dioxide 28 mmol/L (22-30) 08/19/20 15:00 Anion Gap 12 (5-19) 08/19/20 15:00 Est GFR ( Amer) > 60 (>60) 08/19/20 15:00 Glucose 107 mg/dL (75-110) 08/19/20 15:00 Calcium 9.9 mg/dL (8.4-10.2) 08/19/20 15:00 Total Bilirubin 0.8 mg/dL (0.2-1.3) 08/19/20 15:00 AST 25 U/L (17-59) 08/19/20 15:00 Alkaline Phosphatase 91 U/L (38-126) 08/19/20 15:00 Total Protein 7.5 g/dL (6.3-8.2) 08/19/20 15:00 Albumin 4.1 g/dL (3.5-5.0) 08/19/20 15:00 Urine Color YELLOW 08/19/20 15:00 Urine Appearance CLEAR 08/19/20 15:00 Urine pH 6.0 (5.0-9.0) 08/19/20 15:00 Ur Specific [place] 1.013 08/19/20 15:00 Urine Protein 30 mg/dL (NEGATIVE) H 08/19/20 15:00 Urine Glucose (UA) NEGATIVE mg/dL (NEGATIVE) 08/19/20 15:00 Urine Ketones NEGATIVE mg/dL (NEGATIVE) 08/19/20 15:00 Urine Blood SMALL (NEGATIVE) H 08/19/20 15:00 Urine Nitrite NEGATIVE (NEGATIVE) 08/19/20 15:00 Ur Leukocyte Esterase NEGATIVE (NEGATIVE) 08/19/20 15:00 Urine WBC (Auto) 3 /HPF 08/19/20 15:00 Urine RBC (Auto) 2 /HPF 08/19/20 15:00 Laboratories essentially unremarkable. Urinalysis does not show any signs of infection. Discharge - Discharge Clinical Impression: Acute urinary obstruction Condition: Stable Disposition: HOME, SELF-CARE Additional Instructions: Miller Catheter Care Tube Position: Keep the catheter connected to the drainage tubing at all times. Avoid pulling on the catheter. Keep the drainage tube taped to the mid- thigh, on top of your leg (not underneath it). Be sure there are no kinks or loops in the tube. Keep the drainage bag below the bladder. When in bed, the drainage bag should hang below the abdomen but should not lie on the floor. The drainage bag has hooks at the top so it can be hung on a chair or bed. Daily Cleaning: Wash your hands with soap and water before and after caring for your catheter. Twice a day, clean yourself where the catheter goes into the urethra. Use a warm, soapy wash cloth to clean around the urethral opening and the first few inches of the catheter. Females should wash from front to back to decrease the risk of infection from fecal material. After washing with soap, rinse the area with water. Do not put powder around the catheter. Apply ointment only if instructed by your doctor or nurse. Follow up if you develop fever or chills, flank or abdominal pain, blood in the urine, or if urine is not draining into the catheter. Referrals: WEN PLEITEZ MD [NO LOCAL MD] - Follow up as needed I personally performed the services described in the documentation, reviewed and edited the documentation which was dictated to the scribe in my presence, and it accurately records my words and actions.
[2020-08-19 15:19] LABS: ABSOLUTE LYMPHOCYTES (AUTO) 0.7 10^3/uL (0.5-4.7); ABSOLUTE MONOCYTES (AUTO) 0.4 10^3/uL (0.1-1.4); BASOPHILS % (AUTO) 0.5 % (0-2); HEMATOCRIT 39.8 % (37.9-51.0); MEAN CORPUSCULAR HEMOGLOBIN 22.5 pg (27.0-33.4); MEAN CORPUSCULAR HGB CONC 32.6 g/dL (32.0-36.0); MEAN CORPUSCULAR VOLUME 69 fl (80-97); MONOCYTES % (AUTO) 6.6 % (3-13); PLATELET COUNT 164 10^3/uL (150-450); RED BLOOD COUNT 5.77 10^6/uL (4.35-5.55); RED CELL DISTRIBUTION WIDTH 15.6 % (11.5-14.0); SEGMENTED NEUTROPHILS % (AUTO) 80.9 % (42-78); TOTAL CELLS COUNTED % (AUTO) 100 %; WHITE BLOOD COUNT 6.2 10^3/uL (4.0-10.5)
[2020-08-19 15:23] LABS: APPEARANCE,URINE CLEAR; BILIRUBIN,URINE NEGATIVE (NEGATIVE); COLOR,URINE YELLOW; GLUCOSE, URINE NEGATIVE (NEGATIVE); KETONES,URINE NEGATIVE (NEGATIVE); LEUKOCYTE ESTERASE,URINE NEGATIVE (NEGATIVE); NITRITE,URINE NEGATIVE (NEGATIVE); PROTEIN,URINE 30 mg/dL (NEGATIVE); URINE SPECIFIC GRAVITY 1.013; UROBILINOGEN,URINE NEGATIVE mg/dL (<2.0)
[2020-08-19 15:41] LABS: ALBUMIN 4.1 g/dL (3.5-5.0); ALKALINE PHOSPHATASE 91 U/L (38-126); ANION GAP 12 (5-19); ASPARTATE AMINO TRANSFERASE 25 U/L (17-59); BILIRUBIN,TOTAL 0.8 mg/dL (0.2-1.3); BLOOD UREA NITROGEN 15 mg/dL (7-20); CALCIUM 9.9 mg/dL (8.4-10.2); CARBON DIOXIDE 28 mmol/L (22-30); CHLORIDE 101 mmol/L (98-107); GLUCOSE 107 mg/dL (75-110); POTASSIUM 3.9 mmol/L (3.6-5.0); TOTAL PROTEIN 7.5 g/dL (6.3-8.2)
[2020-08-19] MEDS ORDERED: CIPROFLOXACIN HCL 500 MG TABLET PO ONE (15:54)
[2020-08-19 16:35] VITALS: BP 160/95
== END 2020-08-19 16:36 | disposition home or self-care (01) ==
LOC: ER 11:44
DX: N13.9 Obstructive and reflux uropathy, unspecified (principal); R33.9 Retention of urine, unspecified; I10 Essential (primary) hypertension; Z87.442 Personal history of urinary calculi
CPT/HCPCS: 36415; 51702; 80053; 81001; 85025; 87086; 99283

== ENCOUNTER 2020-09-12 14:56 | Emergency (ER) | payer SELFPAY ==
--- NOTE | 2020-09-12 16:12 | ER Document Report ---
ED Medical Screen (RME) - General Chief Complaint: Problem with Urinary Catheter Stated Complaint: CATHETER ISSUE/BLOOD IN URINE Time Seen by Provider: 09/12/20 16:04 Mode of Arrival: Ambulatory Information source: Patient Notes: Patient is a 60-year-old male comes emergency room complaining of leakage around his Nuñez catheter. Patient was seen a couple weeks ago for obstructive uropathy had a Nuñez catheter was placed and has not seen urology yet to have removed. Patient states that he [facility] and they are temporarily get him insurance to go see a neurologist. Patient also has a history of hypertension has not been on his lisinopril and several weeks secondary to not had any medication. Patient denies any fever nausea vomiting. He states that it appears that there is draining but urine is coming out from around his penis and the catheter. Patient examination: Patient is a well-nourished well-developed 60-year-old male no apparent distress on examination. Cardiac: Patient is fully regular rate and rhythm without any murmurs. Patient initial blood pressure was elevated substantially however when taken with blood pressure surgery on my examination to be 184/99. Lungs: Bilateral breath sounds are significant for auscultation. Abdomen: Bowel sounds present all quads nontender to palpate in the area in the sitting position. Patient will need further reviewing the back with visualization of the catheter and possible replacement of it. We will do a urinalysis as well as a basic labs. I have greeted and performed a rapid initial assessment of this patient. A comprehensive ED assessment and evaluation of the patient, analysis of test results and completion of the medical decision making process will be conducted by additional ED providers. Dictation of this chart was performed using voice recognition software; therefore, there may be some unintended grammatical errors. TRAVEL OUTSIDE OF THE [place] IN LAST 30 DAYS: No - Related Data Allergies/Adverse Reactions: No Known Allergies Allergy (Verified 03/22/20 12:20) Home Medications: lisinopril 40 mg Past Medical History - Social History Chew tobacco use (# tins/day): No Drug Abuse: None Family history: Reviewed & Not Pertinent - Past Medical History Cardiac Medical History: Reports: Hx Hypertension Denies: Hx Coronary Artery Disease, Hx Heart Attack Pulmonary Medical History: Denies: Hx Asthma, Hx Bronchitis, Hx COPD, Hx Pneumonia Neurological Medical History: Denies: Hx Cerebrovascular Accident, Hx Seizures Renal/ Medical History: Reports: Hx Kidney Stones Malignancy Medical History: Reports Hx Colorectal Cancer GI Medical History: Reports: Hx Colonoscopy Musculoskeltal Medical History: Denies Hx Arthritis Past Surgical History: Reports: Hx Bowel Surgery - 6 inches of colon due to colon cancer, Hx Inguinal Hernia - Right, Hx Vascular Surgery - 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
[2020-09-12 17:04] LABS: ABSOLUTE EOSINOPHILS # (AUTO) 0.1 10^3/uL (0.0-0.6); ABSOLUTE LYMPHOCYTES (AUTO) 0.9 10^3/uL (0.5-4.7); ABSOLUTE MONOCYTES (AUTO) 0.7 10^3/uL (0.1-1.4); ABSOLUTE NEUT (AUTO) 5.7 10^3/uL (1.7-8.2); BASOPHILS % (AUTO) 0.4 % (0-2); EOSINOPHILS % (AUTO) 0.8 % (0-6); HEMOGLOBIN 13.2 g/dL (13.5-17.0); LYMPHOCYTES % (AUTO) 12.1 % (13-45); MEAN CORPUSCULAR HEMOGLOBIN 23.1 pg (27.0-33.4); MEAN CORPUSCULAR VOLUME 70 fl (80-97); MONOCYTES % (AUTO) 9.3 % (3-13); PLATELET COUNT 193 10^3/uL (150-450); RED BLOOD COUNT 5.72 10^6/uL (4.35-5.55); RED CELL DISTRIBUTION WIDTH 15.6 % (11.5-14.0); SEGMENTED NEUTROPHILS % (AUTO) 77.4 % (42-78); TOTAL CELLS COUNTED % (AUTO) 100 %; WHITE BLOOD COUNT 7.4 10^3/uL (4.0-10.5)
[2020-09-12 17:17] LABS: APPEARANCE,URINE CLOUDY; BILIRUBIN,URINE NEGATIVE (NEGATIVE); COLOR,URINE YELLOW; GLUCOSE, URINE NEGATIVE (NEGATIVE); KETONES,URINE NEGATIVE (NEGATIVE); LEUKOCYTE ESTERASE,URINE LARGE (NEGATIVE); NITRITE,URINE NEGATIVE (NEGATIVE); PROTEIN,URINE 100 mg/dL (NEGATIVE); URINE SPECIFIC GRAVITY 1.019; UROBILINOGEN,URINE NEGATIVE mg/dL (<2.0)
[2020-09-12 17:25] LABS: ALBUMIN 4.4 g/dL (3.5-5.0); ALKALINE PHOSPHATASE 91 U/L (38-126); ANION GAP 10 (5-19); ASPARTATE AMINO TRANSFERASE 26 U/L (17-59); BILIRUBIN,DIRECT 0.2 mg/dL (0.0-0.4); BILIRUBIN,TOTAL 0.9 mg/dL (0.2-1.3); BLOOD UREA NITROGEN 16 mg/dL (7-20); CALCIUM 9.7 mg/dL (8.4-10.2); CARBON DIOXIDE 26 mmol/L (22-30); CHLORIDE 103 mmol/L (98-107); GLUCOSE 99 mg/dL (75-110); TOTAL PROTEIN 7.8 g/dL (6.3-8.2)
[2020-09-12] MEDS ORDERED: CEFTRIAXONE INJ 1000 MG VIAL IM ONE (20:52)
--- NOTE | 2020-09-12 20:53 | ER Document Report ---
ED GI/ - General Chief Complaint: Problem with Urinary Catheter Stated Complaint: CATHETER ISSUE/BLOOD IN URINE Time Seen by Provider: 09/12/20 16:04 Primary Care Provider: [facility] [Provider Group] - Follow up in 3-5 days KEREN TOVAR FNP-C [Primary Care Provider] - Follow up in 1 week Mode of Arrival: Ambulatory Notes: Patient is a 60-year-old male who presents emergency department with his Nuñez catheter leaking and blood in his urine. Patient states that he just started having this issue past couple days. Denies any abdominal pain. Denies any nausea, vomiting, or fever. Patient has not followed up with urology, but has seen [facility] for follow-up. TRAVEL OUTSIDE OF THE [place] IN LAST 30 DAYS: No - Related Data Allergies/Adverse Reactions: No Known Allergies Allergy (Verified 03/22/20 12:20) Home Medications: lisinopril 40 mg Past Medical History - General Information source: Patient - Social History Smoking Status: Never Smoker Chew tobacco use (# tins/day): No Drug Abuse: None Family History: Reviewed & Not Pertinent - Past Medical History Cardiac Medical History: Reports: Hx Hypertension Denies: Hx Coronary Artery Disease, Hx Heart Attack Pulmonary Medical History: Denies: Hx Asthma, Hx Bronchitis, Hx COPD, Hx Pneumonia Neurological Medical History: Denies: Hx Cerebrovascular Accident, Hx Seizures Renal/ Medical History: Reports: Hx Kidney Stones Malignancy Medical History: Reports Hx Colorectal Cancer GI Medical History: Reports: Hx Colonoscopy Musculoskeletal Medical History: Denies Hx Arthritis Past Surgical History: Reports: Hx Bowel Surgery - 6 inches of colon due to colon cancer, Hx Inguinal Hernia - Right, Hx Vascular Surgery - 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 Denies recent unintentional weight loss. Denies fever, chills, or sweats. EENT: Denies eye, ear, throat, or mouth pain, discharge, or symptoms. Denies nasal or sinus congestion. CARDIOVASCULAR: Denies chest pain. RESPIRATORY: Denies shortness of breath, cough, congestion, difficulty breathing, or wheezing. GASTROINTESTINAL: Denies nausea, vomiting, and diarrhea. Denies abdominal pain. Denies constipation. GENITOURINARY: See HPI. MUSCULOSKELETAL: Denies neck and back pain. Denies joint pain or swelling. SKIN: Denies rash, itchiness, or lesions HEMATOLOGIC : Denies easy bruising or bleeding. LYMPHATIC: Denies swollen, painful, enlarged glands. NEUROLOGICAL: Denies no numbness or tingling denies weakness. Denies headache. Denies altered mental status. Denies alteration in speech. PSYCHIATRIC: Denies stress, anxiety, alteration in sleep patterns, or depression. All other systems reviewed and negative. Physical Exam - Vital signs Vitals: Temp Pulse Resp BP Pulse Ox 98.2 F 99 18 229/110 H 100 09/12/20 15:01 09/12/20 15:01 09/12/20 15:01 09/12/20 15:01 09/12/20 15:01 - Notes Notes: PHYSICAL EXAMINATION: GENERAL: Appears well, healthy, well-nourished, no acute distress. HEAD: Normocephalic, atraumatic. EYES: PERRL, conjunctiva normal, all extraocular movements intact, sclera nonicteric ENT: Moist mucous membranes. NECK: Supple, no noticeable swelling, redness, rash. Normal range of motion. LUNGS: Equal breath sounds bilaterally and clear to auscultation. No wheezes rales or rhonchi. CARDIOVASCULAR: S1-S2, regular rate, regular rhythm. Radial pulses 2+, normal. ABDOMEN: Normoactive bowel sounds. Soft, nontender, no guarding, no rebound tenderness, and no masses palpated. EXTREMITIES: Normal strength and range of motion, no pitting or edema. No cyanosis. NEUROLOGICAL: Moves all extremities upon command. Strength 5/5 in all ext remities. PSYCH: Normal mood, normal affect. SKIN: Warm, dry. No rash, lesions, ulcerations noted. Normal skin turgor. Course - Re-evaluation Re-evalutation: 09/12/20 20:51 Hematology is unremarkable. No leukocytosis noted. There is only a slight anemia with a hemoglobin of 13.2. This is unchanged from patient's previous v isit on 19 August. There is a large amount of blood and leukocytes in his urine. Will place the patient on Keflex. Nuñez catheter will be removed and a new one will be placed. Patient is to follow-up with [facility] and urology. Patient is also hypertensive, but has not been taking his lisinopril. Denies any headache. We will put him back on his lisinopril. Educated patient on free medications through [employer]. He is in agreement with this plan. Follow- up precautions were given. Verbal discharge instructions were given to the patient. They verbalized understanding. They are stable for discharge. - Vital Signs Vital signs: Temp Pulse Resp BP Pulse Ox 98.2 F 96 16 176/98 H 99 09/12/20 21:40 09/12/20 21:40 09/12/20 21:40 09/12/20 21:40 09/12/20 21:40 - Laboratory Results Result Diagrams: 09/12/20 16:35 09/12/20 16:35 Laboratory Results Interpreted: 09/12/20 09/12/20 16:25 16:35 RBC 5.72 H Hgb 13.2 L MCV 70 L MCH 23.1 L RDW 15.6 H Lymph % (Auto) 12.1 L Urine Protein 100 H Urine Blood LARGE H Ur Leukocyte Esterase LARGE H Critical Laboratory Results Reviewed: No Critical Results - Radiology Results Critical Radiology Results Reviewed: No Critical Results Discharge - Discharge Clinical Impression: Urinary tract infection Qualifiers: Urinary tract infection type: catheter-associated UTI Indwelling urinary catheter type: indwelling urethral catheter Encounter type: initial encounter Qualified Code(s): T83.511A - Infection and inflammatory reaction due to indwelling urethral catheter, initial encounter Hematuria Qualifiers: Hematuria type: unspecified type Qualified Code(s): R31.9 - Hematuria, unspecified Condition: Stable Disposition: HOME, SELF-CARE Instructions: Cephalexin ([facility]), Urinary Tract Infection ([facility]) Additional Instructions: Your urine shows findings consistent with a urinary tract infection. Please take all the antibiotics as directed even if your symptoms have improved. Please follow-up with your primary care physician as needed. Return to emergency room if you develop fever >101F, persistent vomiting, become lethargic, have severe pain in your sides, or any other symptoms that are concerning to you. Prescriptions: Cephalexin [Keflex] 500 mg PO BID #14 capsule Lisinopril [Zestril] 40 mg PO DAILY #30 tablet Referrals: KEREN TOVAR FNP-C [Primary Care Provider] - Follow up in 1 week [facility] [Provider Group] - Follow up in 3-5 days
[2020-09-12] MEDS ORDERED: LIDOCAINE 1% INJ (10 MG/ML) 10 ML MDV INJ ONE (21:01)
[2020-09-12 21:44] VITALS: BP 176/98
== END 2020-09-12 21:30 | disposition home or self-care (01) ==
LOC: ER 14:56
DX: T83.511A Infection and inflammatory reaction due to indwelling urethral catheter, initial encounter (principal); N39.0 Urinary tract infection, site not specified; R31.9 Hematuria, unspecified; Y84.6 Urinary catheterization as the cause of abnormal reaction of the patient, or of later complication, without mention of misadventure at the time of the procedure; T83.031A Leakage of indwelling urethral catheter, initial encounter; Y73.8 Miscellaneous gastroenterology and urology devices associated with adverse incidents, not elsewhere classified; D64.9 Anemia, unspecified; N13.9 Obstructive and reflux uropathy, unspecified; I10 Essential (primary) hypertension; Z85.048 Personal history of other malignant neoplasm of rectum, rectosigmoid junction, and anus
CPT/HCPCS: 99284; 96372; 51702; 36415; 87086; 85025; 87088; 80053; 81001; J0696; 87186

== ENCOUNTER 2020-09-15 13:06 | Emergency (ER) | payer SELFPAY ==
[2020-09-15] MEDS ORDERED: HYDRALAZINE HCL INJ/PF 20 MG/1 ML SDV IV ONE (13:51)
--- NOTE | 2020-09-15 13:54 | ER Document Report ---
ED Medical Screen (RME) - General Chief Complaint: Problem with Urinary Catheter Stated Complaint: PROBLEM WITH URINARY CATHETER Time Seen by Provider: 09/15/20 13:46 Primary Care Provider: KEREN TOVAR FNP-C [Primary Care Provider] - Follow up as needed Mode of Arrival: Ambulatory Information source: Patient Notes: Patient is a 60-year-old male returns to the emergency room stating he has not been able to urinate for the past 2 days. Patient states he was seen here on and had a catheter changed out but states it has not drained much since he left here. He also states there is a large amount of blood in the catheter and bag. Patient denies any nausea or vomiting or shortness of breath. Vital signs in the emergency room showed a blood pressure of 231/114. Patient states he has been out of his blood pressure medications for 4 days. Physical examination: Patient is a well-nourished well-developed 60-year-old male no apparent distress but appears very uncomfortable. Cardiac: Patient is slightly tachycardic at 100 bpm Lungs: Bilateral breath sounds increased clear auscultation. Abdomen: In the sitting position patient is very distended in the lower abdominal area moderate tenderness suprapubically to palpation. I have greeted and performed a rapid initial assessment of this patient. A comprehensive ED assessment and evaluation of the patient, analysis of test results and completion of the medical decision making process will be conducted by additional ED providers. Dictation of this chart was performed using voice recognition software; therefore, there may be some unintended grammatical errors. Bladder scan has been ordered. TRAVEL OUTSIDE OF THE [place] IN LAST 30 DAYS: No - Related Data Allergies/Adverse Reactions: No Known Allergies Allergy (Verified 09/15/20 13:45) Past Medical History - Social History Family history: Reviewed & Not Pertinent - Past Medical History Cardiac Medical History: Reports: Hx Hypertension Denies: Hx Coronary Artery Disease, Hx Heart Attack Pulmonary Medical History: Denies: Hx Asthma, Hx Bronchitis, Hx COPD, Hx Pneumonia Neurological Medical History: Denies: Hx Cerebrovascular Accident, Hx Seizures Renal/ Medical History: Reports: Hx Kidney Stones Malignancy Medical History: Reports Hx Colorectal Cancer GI Medical History: Reports: Hx Colonoscopy Musculoskeltal Medical History: Denies Hx Arthritis Past Surgical History: Reports: Hx Bowel Surgery - 6 inches of colon due to colon cancer, Hx Inguinal Hernia - Right, Hx Vascular Surgery - 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
[2020-09-15 14:29] LABS: HEMATOCRIT 43.9 % (37.9-51.0); HEMOGLOBIN 14.2 g/dL (13.5-17.0); MEAN CORPUSCULAR HEMOGLOBIN 22.4 pg (27.0-33.4); MEAN CORPUSCULAR HGB CONC 32.3 g/dL (32.0-36.0); MEAN CORPUSCULAR VOLUME 69 fl (80-97); PLATELET COUNT 202 10^3/uL (150-450); RED BLOOD COUNT 6.32 10^6/uL (4.35-5.55); RED CELL DISTRIBUTION WIDTH 15.5 % (11.5-14.0); WHITE BLOOD COUNT 14.3 10^3/uL (4.0-10.5)
[2020-09-15 14:44] LABS: ALBUMIN 4.6 g/dL (3.5-5.0); ALKALINE PHOSPHATASE 106 U/L (38-126); ANION GAP 13 (5-19); ASPARTATE AMINO TRANSFERASE 44 U/L (17-59); BILIRUBIN,DIRECT 0.2 mg/dL (0.0-0.4); BILIRUBIN,TOTAL 1.1 mg/dL (0.2-1.3); BLOOD UREA NITROGEN 32 mg/dL (7-20); CALCIUM 10.3 mg/dL (8.4-10.2); CARBON DIOXIDE 29 mmol/L (22-30); CHLORIDE 98 mmol/L (98-107); GLUCOSE 127 mg/dL (75-110); POTASSIUM 3.9 mmol/L (3.6-5.0); TOTAL PROTEIN 8.6 g/dL (6.3-8.2)
[2020-09-15 15:29] LABS: ABSOLUTE LYMPHOCYTES# (MANUAL) 0.7 10^3/uL (0.5-4.7); ABSOLUTE MONOCYTES # (MANUAL) 0.7 10^3/uL (0.1-1.4); BASOPHILS % (MANUAL) 0 % (0-2); EOSINOPHILS % (MANUAL) 0 % (0-6); LYMPHOCYTES % (MANUAL) 5 % (13-45); MONOCYTES % (MANUAL) 5 % (3-13); SEGMENTED NEUTROPHILS % (MAN) 90 % (42-78); TOTAL CELLS COUNTED 100
[2020-09-15 15:30] LABS: ANISOCYTOSIS SLIGHT; HYPOCHROMASIA 1+; OVALOCYTES 1+; PLATELET COMMENT ADEQUATE; PLATELET LARGE PRESENT
[2020-09-15] MEDS ORDERED: METOPROLOL TARTRATE PF/INJ 5 MG/5 ML SDV IV ONE (16:08)
[2020-09-15 18:10] LABS: APPEARANCE,URINE SLIGHTLY-CLOUDY; BILIRUBIN,URINE NEGATIVE (NEGATIVE); COLOR,URINE YELLOW; GLUCOSE, URINE NEGATIVE (NEGATIVE); KETONES,URINE NEGATIVE (NEGATIVE); LEUKOCYTE ESTERASE,URINE TRACE (NEGATIVE); NITRITE,URINE NEGATIVE (NEGATIVE); PROTEIN,URINE >=500 mg/dL (NEGATIVE); URINE SPECIFIC GRAVITY 1.019; UROBILINOGEN,URINE NEGATIVE mg/dL (<2.0)
--- NOTE | 2020-09-15 18:13 | ER Document Report ---
ED GI/ - General Chief Complaint: Blood in Catheter Stated Complaint: PROBLEM WITH URINARY CATHETER Time Seen by Provider: 09/15/20 13:46 Primary Care Provider: KEREN TOVAR FNP-C [Primary Care Provider] - Follow up as needed Mode of Arrival: Ambulatory Information source: Patient Notes: 60-year-old man presenting to the emergency department with a history of for urine output since back to work last week. He states that he is not had significant drainage from his catheter since Wednesday. He has a bloody drainage into his Nuñez catheter leg bag. He denies fever, nausea vomiting, he denies penile or scrotal swelling/pain. TRAVEL OUTSIDE OF THE [place] IN LAST 30 DAYS: No - Related Data Allergies/Adverse Reactions: No Known Allergies Allergy (Verified 09/15/20 13:45) Past Medical History - General Information source: Patient - Social History Smoking Status: Former Smoker Family History: Reviewed & Not Pertinent - Past Medical History Cardiac Medical History: Reports: Hx Hypertension Denies: Hx Coronary Artery Disease, Hx Heart Attack Pulmonary Medical History: Denies: Hx Asthma, Hx Bronchitis, Hx COPD, Hx Pneumonia Neurological Medical History: Denies: Hx Cerebrovascular Accident, Hx Seizures Renal/ Medical History: Reports: Hx Kidney Stones Malignancy Medical History: Reports Hx Colorectal Cancer GI Medical History: Reports: Hx Colonoscopy Musculoskeletal Medical History: Denies Hx Arthritis Past Surgical History: Reports: Hx Bowel Surgery - 6 inches of colon due to colon cancer, Hx Inguinal Hernia - Right, Hx Vascular Surgery - 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 HENT: Negative for sore throat. Eyes: Negative for visual changes. Cardiovascular: Negative for chest pain. Respiratory: Negative for shortness of breath. Gastrointestinal: Negative for abdominal pain, vomiting or diarrhea. Genitourinary: See HPI Musculoskeletal: Negative for back pain. Skin: Negative for rash. Neurological: Negative for headaches, weakness or numbness. 10 point ROS negative except as marked above and in HPI. Physical Exam - Vital signs Vitals: Temp Pulse Resp BP Pulse Ox 98.4 F 100 20 241/110 H 100 09/15/20 13:17 09/15/20 13:17 09/15/20 13:17 09/15/20 13:17 09/15/20 13:17 Interpretation: Normal - Notes Notes: PHYSICAL EXAMINATION: Physical Exam: General: Well-nourished well-developed 60-year-old man in no acute distress HEENT: NC/AT, pupils equal round and reactive to light, MM moist,nares clear, oropharynx clear, airway patent Neck: supple, no adenopathy, no masses. Good range of motion Lungs: clear, no wheezing, no rales no rhonchi CVS: Regular rate and rhythm no murmur gallop or rub Abdomen: Soft, active, suprapubic tenderness with a distended bladder ap proximately 2 fingerbreadths below the umbilicus., no masses, no hepatosplenomegaly : Nuñez catheter with a bloody drainage noted in the urine leg bag with no urine. Ext: No edema, clubbing or cyanosis. Neuro: Alert and responsive, moving all 4 extremities on command, cranial nerves intact, no focal findings Skin: Intact no open lesions, no rash PSYCH: Normal mood, normal affect. Course - Re-evaluation Re-evalutation: 09/15/20 19:24 Patient had a obstructed Nuñez catheter. The old catheter was removed and a new one placed the patient had drainage of greater than 8000 cc of a reddish tinged urine. He has had significant relief after getting the replacement catheter placed. - Vital Signs Vital signs: Temp Pulse Resp BP Pulse Ox 98.4 F 100 17 210/184 H 99 09/15/20 13:17 09/15/20 13:17 09/15/20 16:01 09/15/20 16:01 09/15/20 16:01 - Laboratory Results Result Diagrams: 09/15/20 14:13 09/15/20 14:13 Laboratory Results Interpreted: 09/15/20 09/15/20 09/15/20 14:13 14:13 17:39 WBC 14.3 H RBC 6.32 H MCV 69 L MCH 22.4 L RDW 15.5 H Seg Neuts % (Manual) 90 H Lymphocytes % (Manual) 5 L Abs Neuts (Manual) 12.9 H BUN 32 H Creatinine 2.03 H Est GFR ( Amer) 41 L Est GFR (MDRD) Non-Af 34 L Glucose 127 H Calcium 10.3 H Total Protein 8.6 H Urine Protein >=500 H Urine Blood LARGE H Ur Leukocyte Esterase TRACE H 09/15/20 19:23 I have reviewed laboratory data and used this information for the treatment decisions regarding the patient. Critical Laboratory Results Reviewed: No Critical Results - Radiology Results Critical Radiology Results Reviewed: No Critical Results Discharge - Discharge Clinical Impression: Obstruction of urinary catheter Qualifiers: Encounter type: initial encounter Qualified Code(s): T83.098A - Other mechanical complication of other urinary catheter, initial encounter Condition: Good Disposition: HOME, SELF-CARE Instructions: Nuñez Catheter Care ([facility]) Additional Instructions: You are seen in the emergency department tonight with a urinary catheter which was obstructed. A new catheter was placed and is draining well. Please monitor your output closely and follow-up with the urologist as previously discussed. If you have further difficulties or have other concerns you may return to the emergency department for further evaluation and treatment HOME CARE INSTRUCTIONS & INFORMATION: Thank you for choosing us for your medical needs. We hope you're satisfied with the care you received. After you leave, you must properly care for your problem and, at the same time, observe its progress. Any condition can change. Some illnesses can change rapidly over hours or days. If your condition worsens, return to the Emergency Department or see your physician promptly. ABOUT YOUR X-RAYS AND EKG'S: If you had an EKG or X-rays taken, they have been read by the Emergency Physician. The X-rays and EKG's will also be read by a Radiologist or Lapping Machine Tender within 24 hours. If discrepancies are noted, you will be notified by telephone. Please be certain the ED has a correct telephone number & address where you can be reached. Also, realize that some fractures or abnormalities do not show up on initial X-rays. If your symptoms continue, see your physician. ABOUT YOUR LABORATORY TEST: If you had laboratory tests, the results have been reviewed by the Emergency Physician. Some test results (for example cultures) may not be available for several days. You will be contacted if any test result shows you need additional treatment. Please be certain the ED has a correct telephone number and address where you can be reached. ABOUT YOUR MEDICATIONS: You will receive instructions on how to take your medicine on the prescription label you receive. Additional information may be provided by the Pharmacy. If you have questions afterwards, call the ED for clarification or further instructions. Some prescribed medications may cause drowsiness. Do not perform tasks such as driving a car or operating machinery without consulting your Pharmacist. If you feel you need a refill of pain medication, your condition will need re-evaluation. Please do not call for a refill of any medication. ABOUT YOUR SIGNATURE: Signature of this document acknowledges to followin. Understanding that you received emergency treatment and that you may be released before al medical problems are known or treated. Please be certain the ED has a correct phone number & address where you can be reached. 2. Acknowledgement that you will arrange for follow-up care as recommended. 3. Authorization for the Emergency Physician to provide information to your follow-up Physician in order to maximize your care. AT ANY TIME, IF YOUR SYMPTOMS CHANGE SIGNIFICANTLY OR WORSEN OR YOU DEVELOP NEW SYMPTOMS, RETURN TO THE EMERGENCY DEPARTMENT IMMEDIATELY FOR RE-EVALUATION. OUR GOAL IS TO PROVIDE EXCELLENT MEDICAL CARE! WE HOPE THAT WE HAVE MET YOUR EXPECTATIONS DURING YOUR EMERGENCY DEPARTMENT VISIT AND THAT YOU FEEL YOU HAVE RECEIVED EXCELLENT CARE! Referrals: KEREN TOVAR, ESVIN-C [Primary Care Provider] - Follow up as needed
[2020-09-15 19:52] VITALS: BP 140/76
== END 2020-09-15 20:03 | disposition home or self-care (01) ==
LOC: ER 13:06
DX: T83.098A Other mechanical complication of other urinary catheter, initial encounter (principal); Y84.6 Urinary catheterization as the cause of abnormal reaction of the patient, or of later complication, without mention of misadventure at the time of the procedure; I10 Essential (primary) hypertension; Z87.442 Personal history of urinary calculi
CPT/HCPCS: 99284; 96374; 36415; 87086; 85025; 80053; 81001; J3490

== ENCOUNTER 2020-10-11 09:59 | Emergency (ER) | payer SELFPAY ==
--- NOTE | 2020-10-11 11:12 | ER Document Report ---
ED Medical Screen (RME) - General Chief Complaint: Problem with Urinary Catheter Stated Complaint: PROBLEM WITH URINARY CATHETER Time Seen by Provider: 10/11/20 11:09 Primary Care Provider: KEREN TOVAR FNP-C [Primary Care Provider] - Follow up as needed Notes: HPI: 60-year-old male with chronic urinary obstruction with an indwelling catheter that is Nuñez type presenting because his catheter bag is leaking. States he does have a urologist but does not have an appointment for another 3 weeks. Did not call his urologist prior to coming to the emergency department requesting to have his catheter bag changed. No problems with where the catheter is inserted into the penis denies fever nausea vomiting penile testicular or abdominal pain. States the problem is in the bag itself states that normally they have to switch out the entire bag and insert a new catheter PHYSICAL EXAMINATION: exam deferred in triage. The patient's Nuñez catheter bag itself does appear to be leaking onto the floor I have greeted and performed a rapid initial assessment of this patient. A comprehensive ED assessment and evaluation of the patient, analysis of test results and completion of medical decision making process will be conducted by an additional ED providers. Please note that clinical decision making for this patient was made during the 2019 pandemic of novel coronavirus which caused a significant strain on the healthcare system including at this particular facility. Criteria for admission discharge and level of care decisions as well as treatment decisions have necessarily changed TRAVEL OUTSIDE OF THE [place] IN LAST 30 DAYS: No - Related Data Allergies/Adverse Reactions: No Known Allergies Allergy (Verified 09/15/20 13:45) Past Medical History - Social History Family history: Reviewed & Not Pertinent - Past Medical History Cardiac Medical History: Reports: Hx Hypertension Denies: Hx Coronary Artery Disease, Hx Heart Attack Pulmonary Medical History: Denies: Hx Asthma, Hx Bronchitis, Hx COPD, Hx Pneumonia Neurological Medical History: Denies: Hx Cerebrovascular Accident, Hx Seizures Renal/ Medical History: Reports: Hx Kidney Stones Malignancy Medical History: Reports Hx Colorectal Cancer GI Medical History: Reports: Hx Colonoscopy Musculoskeltal Medical History: Denies Hx Arthritis Past Surgical History: Reports: Hx Bowel Surgery - 6 inches of colon due to colon cancer, Hx Inguinal Hernia - Right, Hx Vascular Surgery - 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
--- NOTE | 2020-10-11 13:56 | ER Document Report ---
Entered by VIDA PERDOMO SCRIBE 10/11/20 1331 Acting as scribe for:AURA POND MD ED GI/ - General Chief Complaint: Problem with Urinary Catheter Stated Complaint: PROBLEM WITH URINARY CATHETER Time Seen by Provider: 10/11/20 11:09 Primary Care Provider: KEREN TOVAR FNP-C [Primary Care Provider] - Follow up as needed Mode of Arrival: Ambulatory Information source: Patient Notes: This 60-year-old male patient presents to the emergency department today with complaints of a leaking Miller catheter. Patient reports that the Miller catheter is leaking around the reservoir that collects the urine. This Miller was placed at this facility on 09/15, it has not been changed. TRAVEL OUTSIDE OF THE [place] IN LAST 30 DAYS: No - Related Data Allergies/Adverse Reactions: No Known Allergies Allergy (Verified 09/15/20 13:45) Home Medications: Flomax, Lisinopril Past Medical History - General Information source: Patient - Social History Smoking Status: Never Smoker Cigarette use (# per day): No Frequency of alcohol use: None Drug Abuse: None Lives with: Family Family History: Reviewed & Not Pertinent - Past Medical History Cardiac Medical History: Reports: Hx Hypertension Renal/ Medical History: Reports: Hx Kidney Stones Malignancy Medical History: Reports Hx Colorectal Cancer GI Medical History: Reports: Hx Colonoscopy Past Surgical History: Reports: Hx Bowel Surgery - 6 inches of colon due to colon cancer, Hx Inguinal Hernia - Right, Hx Vascular Surgery - 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 - Immunizations Hx Diphtheria, Pertussis, Tetanus Vaccination: Yes Review of Systems - Review of Systems Constitutional: No symptoms reported EENT: No symptoms reported Cardiovascular: No symptoms reported Respiratory: No symptoms reported Gastrointestinal: No symptoms reported Genitourinary: See HPI, Other - miller leaking Male Genitourinary: No symptoms reported Musculoskeletal: No symptoms reported Skin: No symptoms reported Hematologic/Lymphatic: No symptoms reported Neurological/Psychological: No symptoms reported -: Yes All other systems reviewed and negative Physical Exam - Vital signs Vitals: Temp Pulse Resp BP Pulse Ox 98.1 F 67 18 168/81 H 99 10/11/20 10:14 10/11/20 10:14 10/11/20 10:14 10/11/20 10:14 10/11/20 10:14 - Notes Notes: Physical Exam: General: Alert, appears well. HEENT: Normocephalic. Atraumatic. PERRL. Extraocular movements intact. Oropharynx clear. Neck: Supple. Non-tender. Respiratory: No respiratory distress. Clear and equal breath sounds bilaterally. Cardiovascular: Regular rate and rhythm. Abdominal: Normal Inspection. Non-tender. No distension. Normal Bowel Sounds. Male Genitourinary: Miller catheter in place Back: No gross abnormalities. Extremities: Moves all four extremities. Upper extremities: Normal inspection. Normal ROM. Lower extremities: Normal inspection. No edema. Normal ROM. Neurological: Normal cognition. AAOx4. Normal speech. Psychological: Normal affect. Normal Mood. Skin: Warm. Dry. Normal color. Course - Vital Signs Vital signs: Temp Pulse Resp BP Pulse Ox 98.0 F 67 16 179/89 H 100 10/11/20 14:08 10/11/20 14:08 10/11/20 14:08 10/11/20 14:08 10/11/20 14:08 - Laboratory Results Critical Laboratory Results Reviewed: No Critical Results - Radiology Results Critical Radiology Results Reviewed: No Critical Results Discharge - Discharge Clinical Impression: Urinary catheter (Miller) change required Condition: Stable Disposition: HOME, SELF-CARE Additional Instructions: Follow-up with your urologist when you can get an appointment. RETURN TO THE EMERGENCY ROOM IF ANY NEW OR WORSENING SYMPTOMS. Referrals: KEREN TOVAR, TRUCK ASSEMBLER-C [Primary Care Provider] - Follow up as needed I personally performed the services described in the documentation, reviewed and edited the documentation which was dictated to the scribe in my presence, and it accurately records my words and actions.
[2020-10-11 14:09] VITALS: BP 179/89
== END 2020-10-11 14:09 | disposition home or self-care (01) ==
LOC: ER 09:59
DX: Z46.6 Encounter for fitting and adjustment of urinary device (principal); I10 Essential (primary) hypertension; Z87.442 Personal history of urinary calculi
CPT/HCPCS: 51702; 99284